=== PATIENT | male | born 1945 | race Caucasian/White ===

== ENCOUNTER 2017-08-09 23:13 | Inpatient (IN) | payer OTHER ==
[~2017-08-09] VITALS: Ht 190.5 cm; Wt 150.6 kg
[~2017-08-09 23:13] MED LIST: ADVAIR INH; ALBUAER2 INH; ALLO300T2 PO; ATOR-24 PO; LEVOTHROXINE PO; LOSARTAN/HCTZ 100-25 PO; NAPR220T40 PO; OLOP0.1S3 OP; SERT1TAB71 PO
[2017-08-09] MEDS ORDERED: ONDANSETRON INJ 2 MG/ML 2 ML VIAL IV STA (23:49)
[2017-08-09] MEDS ORDERED: SODIUM CHLORIDE 0.9% 1000ML 1,000 ML IV STA (23:49)
--- NOTE | 2017-08-09 23:49 | EMERGENCY ROOM VISIT NOTE ---
History Report prepared by Reginald: Lori Coley Under the Supervision of: Dr. Seth Erickson M.D. First contact with patient: 23:25 Chief Complaint: URINARY SYMPTOMS Stated Complaint: POSSIBLE UTI, DEMNTA History of Present Illness The patient is a 72 year old white male with a past medical history of dementia , HTN, HLD who presents to the ED with a cc of urinary symptoms beginning last night. Positive fever of 101.8, abdominal pain. Negative headache, sore throat, cough, vomiting, rashes, or skin changes. He is accompanied by his who states that last night her fell but was able to catch himself on the bed. She also states he has been talking to himself, babbling and is more confused than usual. She also reports that he spent all of today sleeping. She also notes that the patient is currently taking Remeron. Source of History: patient, spouse/significant other () Onset: last night Position: other (upper and lower extremities) Quality: other (urinary symptoms) Associated Symptoms: + abdominal pain, No headache, No sorethroat, No cough , No vomiting, No rash Note: Negative skin changes. Review of Systems See HPI for pertinent positives and negatives. A total of ten systems were reviewed and were otherwise negative. Past Medical & Surgical Medical Problems: (1) Dementia Dementia Social History Smoking Status: Never Smoker Smokeless Tobacco Use: No Housing Status: lives with family Occupation Status: retired Current/Historical Medications Scheduled Albuterol (Ventolin Hfa), 1-2 PUFFS INH PRN Allopurinol (Zyloprim), 300 MG PO QAM Aspirin (Aspirin Ec), 325 MG PO DAILY Atorvastatin (Lipitor), 40 MG PO QPM Azelastine HCl (Azelastine Hydrochloride), 2 SPRAYS CARLOS BID Budesonide/Formoterol Fumarate (Symbicort 160/4.5 Inhaler ), 2 PUFFS INH BID Ergocalciferol (Vitamin D 15686 Unit), 50,000 UNIT PO WK Fluticasone Propionate (Nasal) (Flonase Allergy Relief), 1 SPRAY CARLOS BID Guaifenesin La (Guaifenesin Er), 600 MG PO BID Hctz/Losartan (Hyzaar 25MG/100MG), 1 TAB PO DAILY Levothyroxine Sodium (Levothyroxine Sodium), 100 MCG PO DAILY Montelukast Sodium (Singulair), 10 MG PO HS Tamsulosin Hcl (Flomax), 0.4 MG PO DAILY Venlafaxine Hcl (Effexor Extended Rel), 150 MG PO DAILY Scheduled PRN Ketotifen Fumarate (Ophth) (Alaway), 1 DROPS OPB q8-12hours PRN for itchy eyes Allergies Coded Allergies: Lentils (Verified Allergy, Severe, THROAT SWELLS, 08/10/17) Uncoded Allergies: PEAS (Allergy, Severe, THROAT SWELLS, 06/02/12) NKDA (Allergy, Unknown, NKDA, 02/04/16) Physical Exam Vital Signs Date Time Temp Pulse Resp B/P (MAP) Pulse Ox O2 Delivery O2 Flow Rate FiO2 08/10/17 00:59 95 Room Air 08/10/17 00:58 108 18 132/82 Room Air 08/10/17 00:15 106 08/09/17 23:16 37.4 62 18 116/65 95 Room Air Physical Exam GENERAL: Awake, alert, well-appearing, NAD HENT: Normocephalic, atraumatic. EYES: Normal conjunctiva. Sclera non-icteric. Visual acuity to gross finger counting normal. PERRL. EOMI. No anisocoria. NECK: Supple. No nuchal rigidity. FROM. RESPIRATORY: CTAB, no rhonchi, wheezing, crackles CARDIAC: Tachycardic and irregular, no MRG ABDOMEN: Soft, NTND, BS+ MSK: Right sided chest wall pain, no LE edema NEURO: GCS 14, CN 2-12 intact, moves all 4s on command. A and O x2. Follow commands. SKIN: No rash or jaundice noted. Medical Decision & Procedures ER Provider Diagnostic Interpretation: Radiology results as stated below per my review and radiologist interpretation: CT HEAD: No prior No acute intracranial findings. Radiologist: Osman Joshi MD Phone: [phone] Study ready at 00:50 and intial results transmitted at 01:20 Laboratory Results 08/09/17 00:35 Red Blood Count 4.77, Mean Corpuscular Volume 91.8, Mean Corpuscular Hemoglobin 31.2, Mean Corpuscular Hemoglobin Concent 34.0, Mean Platelet Volume 9.0, Neutrophils (%) (Auto) 70.8, Lymphocytes (%) (Auto) 17.1, Monocytes (%) (Auto) 11.2, Eosinophils (%) (Auto) 0.6, Basophils (%) (Auto) 0.2, Neutrophils # (Auto ) 7.58, Lymphocytes # (Auto) 1.83, Monocytes # (Auto) 1.20, Eosinophils # (Auto ) 0.06, Basophils # (Auto) 0.02 08/09/17 00:35 Test 08/09/17 00:35 White Blood Count 10.70 K/uL (4.8-10.8) Red Blood Count 4.77 M/uL (4.7-6.1) Hemoglobin 14.9 g/dL (14.0-18.0) Hematocrit 43.8 % (42-52) Mean Corpuscular Volume 91.8 fL (80-100) Mean Corpuscular Hemoglobin 31.2 pg (25-34) Mean Corpuscular Hemoglobin Concent 34.0 g/dl (32-36) Platelet Count 216 K/uL (130-400) Mean Platelet Volume 9.0 fL (7.4-10.4) Neutrophils (%) (Auto) 70.8 % Lymphocytes (%) (Auto) 17.1 % Monocytes (%) (Auto) 11.2 % Eosinophils (%) (Auto) 0.6 % Basophils (%) (Auto) 0.2 % Neutrophils # (Auto) 7.58 K/uL (1.4-6.5) Lymphocytes # (Auto) 1.83 K/uL (1.2-3.4) Monocytes # (Auto) 1.20 K/uL (0.11-0.59) Eosinophils # (Auto) 0.06 K/uL (0-0.5) Basophils # (Auto) 0.02 K/uL (0-0.2) RDW Standard Deviation 45.6 fL (36.4-46.3) RDW Coefficient of Variation 13.6 % (11.5-14.5) Immature Granulocyte % (Auto) 0.1 % Immature Granulocyte # (Auto) 0.01 K/uL (0.00-0.02) Prothrombin Time 10.6 SECONDS (9.0-12.0) Prothromb Time International Ratio 1.0 (0.9-1.1) Activated Partial Thromboplast Time 27.3 SECONDS (21.0-31.0) Partial Thromboplastin Ratio 1.1 Anion Gap 8.0 mmol/L (3-11) Est Creatinine Clear Calc Drug Dose 88.9 ml/min Estimated GFR () 69.4 Estimated GFR (Non- 59.9 BUN/Creatinine Ratio 10.6 (10-20) Calcium Level 8.5 mg/dl (8.5-10.1) Magnesium Level 1.8 mg/dl (1.8-2.4) Total Bilirubin 1.8 mg/dl (0.2-1) Direct Bilirubin 0.5 mg/dl (0-0.2) Aspartate Amino Transf (AST/SGOT) 22 U/L (15-37) Alanine Aminotransferase (ALT/SGPT) 19 U/L (12-78) Alkaline Phosphatase 92 U/L (45-117) Troponin I < 0.015 ng/ml (0-0.045) Total Protein 7.4 gm/dl (6.4-8.2) Albumin 3.4 gm/dl (3.4-5.0) Lipase 77 U/L (73-393) Thyroid Stimulating Hormone (TSH) 1.310 uIu/ml (0.300-4.500) Laboratory results reviewed by me Medications Administered Medications (Trade) Dose Ordered Sig/Paul Route Start Time Stop Time Status Last Admin Dose Admin Sodium Chloride 1,000 ml @ 999 mls/hr Q1H1M STAT IV 08/09/17 23:49 08/10/17 00:49 DC 08/10/17 00:51 999 MLS/HR Ceftriaxone Sodium (Rocephin Inj) 1 gm NOW STAT IV 08/10/17 00:30 08/10/17 00:31 DC 08/10/17 00:55 1 GM Azithromycin (Zithromax Tab) 500 mg NOW ONCE PO 08/10/17 00:30 08/10/17 00:31 DC 08/10/17 00:51 500 MG ECG Per My Interpretation Indication: other (altered mental status) Rate (beats per minute): 110 Rhythm: atrial fibrillation Findings: Q waves (Anterior), other (normal QRS, normal axis ) Comparison ECG Date: 06/02/12 Change: Afib is new and the Q waves are new compared to prior ED Course 2338: The patient was evaluated in room B8. A complete history and physical exam was performed. 2349: Ordered Zofran Inj 4 mg IV, Sodium Chloride 1000 ml @ 999 mls/hr IV 0023: Ordered Cardizem Inj 25 mg IV, Diltiazem HCl 120 mg PO 0030: Ordered Zithromax Tab 500 mg PO, Rocephin Inj 1 gm IV 0032: I checked on the patient at this time. Discussed the patient's case with . The patient will be evaluated for further treatment and disposition. Medical Decision The patient is a 72 year old white male with a past medical history of dementia , HTN, HLD who presents to the ED with a cc of urinary symptoms beginning last night. Positive fever of 101.8, abdominal pain. Negative headache, sore throat, cough, vomiting, rashes, or skin changes. Prior records/ancillary studies reviewed and summarized above. Nursing notes reviewed. Additional history obtained from the patient's . The patient's history was concerning for altered mental status. Differential diagnosis: Etiologies such as metabolic, infection, hypoglycemia, electrolyte abnormalities , cardiac sources, intracerebral event, toxicologic, neurologic, as well as others were entertained. Patient was seen and evaluated the bedside. History is primarily obtained from the who is the patient's primary caregiver. She is noted that he has had some increasing weakness decreased alertness, decreased activity, and fever. He said a T-max of 101. He may have some questionable urinary symptoms. She is concerned that maybe he has a UTI. The patient is a and O 2 and can follow commands. GCS of 14. No recent falls or head strikes. Patient did complain of some mild right-sided lower chest versus right upper quadrant discomfort. On exam he complains of both. Patient did have blood work completed along with EKG, troponin, chest x-ray, urinalysis. Patient's EKG did note that the patient was in A. fib. The patient was given IV fluids as well as Cardizem. The patient's chest x-ray showed a questionable infiltrate at the right base. Especially given the patient's fever as well as decreased mental status this may be contributory. Furthermore, he may be at risk of aspiration given his history of dementia. Patient has no prior history of A. fib and is not anticoagulated at this time. The patient's potassium was low which was repleted. Patient was noted to have elevated T bili so right upper quadrant ultrasound was obtained. This was pending. White blood cell count was normal. Patient's LFTs alk phos within normal limits. Patient was treated with Rocephin and Zithromax for possible pneumonia. I did discuss with the case with the on-call hospitalist. Urinalysis is still pending. CT of the brain was negative. Medicine service agreed to further evaluate and treat the patient. Patient was admitted to the medicine service. Medication Reconcilliation Current Medication List: was personally reviewed by me Blood Pressure Screening Patient's blood pressure: Normal blood pressure Blood pressure disposition: Did not require urgent referral Impression Primary Impression: Pneumonia Additional Impressions: Fever A-fib Hypokalemia Dementia Scribe Attestation The scribe's documentation has been prepared under my direction and personally reviewed by me in its entirety. I confirm that the note above accurately reflects all work, treatment, procedures, and medical decision making performed by me. Departure Information Dispostion Being Evaluated By Hospitalist Referrals No Doctor, Assigned (PCP) Patient Instructions My [facility] Problem Qualifiers Primary Impression: Pneumonia Pneumonia type: due to unspecified organism Laterality: right Lung location : lower lobe of lung Qualified Codes: J18.1 - Lobar pneumonia, unspecified organism Additional Impressions: Fever Fever type: unspecified Qualified Codes: R50.9 - Fever, unspecified A-fib Atrial fibrillation type: paroxysmal Qualified Codes: I48.0 - Paroxysmal atrial fibrillation Dementia Dementia type: unspecified type Dementia behavioral disturbance: with behavioral disturbance Qualified Codes: F03.91 - Unspecified dementia with behavioral disturbance
[2017-08-10] VITALS (10 sets, daily range): BP systolic 76–151; BP diastolic 52–85; PULSE 74–120; TEMP 37–37.8; O2SAT 90–95; Ht 190.5 cm; Wt 150.6 kg
[2017-08-10] MEDS ORDERED: DILTIAZEM HCL 5 MG/ML 5 ML VIAL IV STA (00:23)
[2017-08-10] MEDS ORDERED: DILTIAZEM HCL 120 MG ER CAP PO STA (00:23)
[2017-08-10] MEDS ORDERED: MONT1TAB3 PO (00:29)
[2017-08-10] MEDS ORDERED: CEFTRIAXONE SOD INJ 1 GM ADDVIAL IV STA (00:30)
[2017-08-10] MEDS ORDERED: AZITHROMYCIN 250 MG TAB PO ONE (00:30)
[2017-08-10] MEDS ORDERED: AZEL0.1S2 NAE (00:31)
[2017-08-10] MEDS ORDERED: HYZ/10015 PO (00:32)
[2017-08-10] MEDS ORDERED: FLUT0.15 NAE (00:34)
[2017-08-10] MEDS ORDERED: SYMIN160 INH (00:35)
[2017-08-10] MEDS ORDERED: ERGO500037 PO (00:36)
[2017-08-10] MEDS ORDERED: LEVO100T7 PO (00:38)
[2017-08-10] MEDS ORDERED: KETO0.024 OPB (00:40)
[2017-08-10] MEDS ORDERED: ASPI325T39 PO (00:41)
[2017-08-10] MEDS ORDERED: GUAI1TAB75 PO (00:42)
[2017-08-10] MEDS ORDERED: TAMS0.4C38 PO (00:43)
[2017-08-10] MEDS ORDERED: VENL150C56 PO (00:44)
[2017-08-10 00:50] LABS: BASO % 0.2 %; BASO ABS # 0.02 K/uL (0-0.2); EOS % 0.6 %; EOS ABS # 0.06 K/uL (0-0.5); HEMATOCRIT 43.8 % (42-52); HEMOGLOBIN 14.9 g/dL (14.0-18.0); IG# 0.01 K/uL (0.00-0.02); LYMPH % 17.1 %; LYMPH ABS # 1.83 K/uL (1.2-3.4); MEAN CELL VOLUME 91.8 fL (80-100); MEAN CORPUSCULAR HEMOGLOBIN 31.2 pg (25-34); MONO % 11.2 %; NEUT % 70.8 %; NEUT ABS # 7.58 K/uL (1.4-6.5); PLATELET COUNT 216 K/uL (130-400); RED CELL DISTRIBUTION WIDTH CV 13.6 % (11.5-14.5); RED CELL DISTRIBUTION WIDTH SD 45.6 fL (36.4-46.3)
[2017-08-10 01:02] LABS: PTT PATIENT 27.3 SECONDS (21.0-31.0)
[2017-08-10 01:12] LABS: ALBUMIN 3.4 gm/dl (3.4-5.0); ALT/SGPT 19 U/L (12-78); AST/SGOT 22 U/L (15-37); BLOOD UREA NITROGEN 13 mg/dl (7-18); CALCIUM 8.5 mg/dl (8.5-10.1); CARBON DIOXIDE 30 mmol/L (21-32); CREATININE 1.21 mg/dl (0.60-1.40); GLUCOSE 111 mg/dl (70-99); LIPASE 77 U/L (73-393); POTASSIUM 3.1 mmol/L (3.5-5.1); SODIUM 139 mmol/L (136-145)
[2017-08-10] MEDS ORDERED: POTASSIUM CHLORIDE 20 MEQ TABCR PO STA ×2 (01:20→08:01)
[2017-08-10 01:23] LABS: ALKALINE PHOSPHATASE 92 U/L (45-117); TOTAL PROTEIN 7.4 gm/dl (6.4-8.2)
[2017-08-10] MEDS ORDERED: FINA5TAB4 PO (02:46)
[2017-08-10] MEDS ORDERED: POTASSIUM CHLORIDE 10 MEQ TABCR ONE (02:51)
[2017-08-10] MEDS ORDERED: METOPROLOL TARTRATE 1 MG/ML VIAL IV STA (03:10)
[2017-08-10] MEDS ORDERED: HEPARIN SOD (PORCINE) 1000 UNIT/ML 10 ML VIAL ONE (03:23)
[2017-08-10] MEDS ORDERED: HEPARIN 25000 UNIT/500 ML D5W ONE (03:23)
--- NOTE | 2017-08-10 03:49 | History and Physical ---
History & Physical Date & Time of Service: August 10, 2017 at 03:09 Chief Complaint: Possible Uti, Demnta Primary Care Physician: Brijesh Darnell M.D. History of Present Illness Source: patient, spouse, clinic records, hospital records 72 years old male with past medical history of hypertension, hypothyroidism, obesity, advanced dementia, vitamin D deficiency, venous insufficiency present to the ER with urinary incontinence and fever. History obtained from the due to advanced dementia. As per for the past 3 nights, patient has been found in his bed soaked in his urine which is unusual for him. said his mental status as been deteriorated in the past few days and patient has been feeling more sleepy and tired. He has been moving very slowly and his gait his unsteady. Yesterday afternoon he spiked a fever with temp 101.8. said last night patient fell, but he was able to catch himself on the bed. He has been more confused than usual. Also he has been coughing with productive yellowish sputum. He was recently started on Remeron about a week ago. While in the ER his heart rate increased above 100 from 60. EKG done in the ER showed Afib. As per patient has no history of A. fib. Also complaint of RUQ tenderness that resolved. Denies any chest pain, palpitation, dizziness, shortness of breath, diarrhea, nausea and vomiting. Past Medical/Surgical History Medical Problems: (1) Afib (2) Dementia (3) Fever Social History Smoking Status: Never Smoker Smokeless Tobacco Use: No Occupational Status: retired Allergies Coded Allergies: Lentils (Verified Allergy, Severe, THROAT SWELLS, 08/10/17) Pea (Verified Allergy, Severe, throat swells, 08/10/17) NO KNOWN DRUG ALLERGIES (Verified Allergy, Unknown, ., 08/10/17) Home Medications Scheduled Albuterol (Ventolin Hfa), 1-2 PUFFS INH PRN Allopurinol (Zyloprim), 300 MG PO HS Aspirin (Aspirin Ec), 325 MG PO DAILY Atorvastatin (Lipitor), 40 MG PO QPM Azelastine HCl (Azelastine Hydrochloride), 2 SPRAYS CARLOS BID Budesonide/Formoterol Fumarate (Symbicort 160/4.5 Inhaler ), 2 PUFFS INH BID Ergocalciferol (Vitamin D 07191 Unit), 50,000 UNIT PO WK Finasteride (Proscar), 1 TAB PO DAILY Hctz/Losartan (Hyzaar 25MG/100MG), 1 TAB PO DAILY Levothyroxine Sodium (Levothyroxine Sodium), 100 MCG PO DAILY Montelukast Sodium (Singulair), 10 MG PO HS Venlafaxine Hcl (Effexor Extended Rel), 150 MG PO DAILY Scheduled PRN Ketotifen Fumarate (Ophth) (Alaway), 1 DROPS OPB q8-12hours PRN for itchy eyes Review of Systems Constitutional: + fever, + weakness Eyes: + worsening of vision, No discharge ENT: No sore throat, No trouble swallowing Respiratory: + cough, + sputum, No shortness of breath Cardiovascular: + edema, No chest pain, No claudication Abdomen: No pain, No nausea, No vomiting Musculoskeletal: + swelling, No calf pain Genitourinary - Male: + urinary incontinence Neurologic: + memory loss, + weakness, + balance problems Psychiatric: No substance abuse Endocrine: + fatigue Hematologic / Lymphatic: No night sweats Integumentary: No rash, No itch Physical Exam Vital Signs Date Time Temp Pulse Resp B/P (MAP) Pulse Ox O2 Delivery O2 Flow Rate FiO2 08/10/17 00:59 95 Room Air 08/10/17 00:58 108 18 132/82 Room Air 08/10/17 00:15 106 08/09/17 23:16 37.4 62 18 116/65 95 Room Air General Appearance: no apparent distress, + obese Head: normocephalic, atraumatic Eyes: PERRL, EOMI ENT: hearing grossly normal Neck: no JVD, trachea midline Respiratory/Chest: chest non-tender, no respiratory distress, no accessory muscle use Cardiovascular: no JVD, no murmur, + irregularly irregular Abdomen/GI: normal bowel sounds, non tender Back: no CVA tenderness Extremities/Musculoskelatal: no calf tenderness, + swelling Neurologic/Psych: alert, normal mood/affect Skin: warm/dry, no rash Diagnostics Laboratory Results Microbiology Results 08/10/17 Blood Culture, Ordered Pending 08/10/17 Blood Culture, Ordered Pending Diagnostic Radiology CHEST ONE VIEW PORTABLE CLINICAL HISTORY: EVALUATE WEAKNESS COMPARISON STUDY: Chest radiograph June 02, 2012. FINDINGS: There is no pneumothorax or pleural effusion. There is no evidence for pulmonary edema. Lung volumes are diminished. Right infrahilar opacity is noted. There is mild left basilar opacity. Mild cardiomegaly is noted. IMPRESSION: Bibasilar opacities, right greater than left. The findings may reflect pneumonia or atelectasis on this hypoventilatory study. Radiographic follow-up to ensure resolution is recommended. Electronically signed by: Yariel Doll M.D. 08/10/2017 6:42 AM Dictated Date/Time: 08/10/2017 6:[address] HEAD WITHOUT CONTRAST (CT) CLINICAL HISTORY: Change in mental status. Weakness. COMPARISON STUDY: No previous studies for comparison. TECHNIQUE: Axial CT of the brain is performed from the vertex to the skull base. IV contrast was not administered for this examination. A dose lowering technique was utilized adhering to the principles of ALARA. CT DOSE: 614.27 mGy.cm FINDINGS: No intra or extra-axial mass lesions are visualized. There is no CT evidence of acute cortical infarction. There is no evidence of midline shift. There is no acute hemorrhage. No calvarial fractures are visualized. There are patchy white matter hypodensities likely on a small vessel basis. There is no evidence of pathologic ventricular dilatation. There is no evidence of acute sinusitis IMPRESSION: No acute intracranial findings Electronically signed by: Jorge Luis Rubalcava M.D. 08/10/2017 6:30 AM Dictated Date/Time: 08/10/2017 6:29 AM [~ rep ct add3]] GALLBLADDER-ABD LIMITED HISTORY: 72 years-old Male RUQ pain, elevated bilis acute right upper quadrant abdominal pain COMPARISON: None available TECHNIQUE: Multiple real-time sonographic images of the abdominal right upper quadrant were obtained assessing grayscale appearance and color flow FINDINGS: Study is limited secondary to patient confusion, body habitus and inability to follow instructions from the press tool maker. The visualized portions of the pancreas appear unremarkable. Cluster of cysts and/or septated cyst in the left hepatic lobe measure up to 5.4 x 5.0 x 4.7 cm. No internal vascularity. No intrahepatic biliary ductal dilation identified. Gallbladder is within normal limits without wall thickening, shadowing cholelithiasis or pericholecystic fluid. Sonographic Diehl sign reported as negative. Common bile duct is normal, 3.5 mm. The imaged right kidney is unremarkable without hydronephrosis. IMPRESSION: 1. Limited study as above. 2. No sonographic evidence of cholelithiasis or acute cholecystitis. 3. No biliary ductal dilation. 4. Liver cyst with septation versus two adjacent hepatic cysts. The above report was generated using voice recognition software. It may contain grammatical, syntax or spelling errors. Electronically signed by: Jaxson Ngo M.D. 08/10/2017 6:39 AM Dictated Date/Time: 08/10/2017 6:36 AM Impression Assessment and Plan Fever Confusion Possible related to UTI versus pneumonia No leukocytosis Chest x-ray showed bibasilar opacities, right greater than left. Antibiotic was given before collected blood and urine sample Received Rocephin and Zithromax in the ER We will continue Zithromax and Rocephin for now Follow-up culture New-onset of A. fib Heart rate between the high 90s-100s Mostly related to infection [id number] Vasc 2 Not a good candidate for long-term anticoagulant due to advanced dementia and unsteady gait with recent fall We will start on heparin drip while in the hospital Lopressor 5 mg IV given We will get an echo in the morning Continue aspirin Cardiology consult Monitor in telemetry Hypokalemia K replaced Monitor BMP Hypertension BP stable Continue BP med Dementia Seems to be worsening Depression Anxiety On Effexor Stable Hypothyroidism TSH within normal limits Continue levothyroxine 100 mcg Ambulatory dysfunction Fall precaution PT/OT Asthma Patient stopped taking the Symbicort Denies any shortness of breath Continue Symbicort DuoNeb treatment Dementia Altered mental status CT head showed no acute intracranial abnormality Mostly due to acute illness Dyslipidemia Continue statin DVT prophylaxis on heparin drip CODE STATUS DNR Anabaptist no blood transfusion Resuscitation Status VTE Prophylaxis Will order VTE Prophylaxis: Yes
[2017-08-10] MEDS ORDERED: ALBUT/IPRATROP 3MG/0.5MG NEB 3 ML VIAL INH PRN (04:15)
[2017-08-10] MEDS: ACETAMINOPHEN 325 MG TAB PO PRN ×2 (05:04→21:23)
[2017-08-10] MEDS: LEVOTHYROXINE 100 MCG TAB PO SCH (06:22)
--- NOTE | 2017-08-10 06:31 | DIAGNOSTIC IMAGING REPORT ---
CT HEAD WITHOUT CONTRAST (CT) CLINICAL HISTORY: Change in mental status. Weakness. COMPARISON STUDY: No previous studies for comparison. TECHNIQUE: Axial CT of the brain is performed from the vertex to the skull base. IV contrast was not administered for this examination. A dose lowering technique was utilized adhering to the principles of ALARA. CT DOSE: 614.27 mGy.cm FINDINGS: No intra or extra-axial mass lesions are visualized. There is no CT evidence of acute cortical infarction. There is no evidence of midline shift. There is no acute hemorrhage. No calvarial fractures are visualized. There are patchy white matter hypodensities likely on a small vessel basis. There is no evidence of pathologic ventricular dilatation. There is no evidence of acute sinusitis IMPRESSION: No acute intracranial findings Electronically signed by: Jorge Luis Rubalcava M.D. 08/10/2017 6:30 AM Dictated Date/Time: 08/10/2017 6:29 AM
--- NOTE | 2017-08-10 06:41 | DIAGNOSTIC IMAGING REPORT ---
GALLBLADDER-ABD LIMITED HISTORY: 72 years-old Male RUQ pain, elevated bilis acute right upper quadrant abdominal pain COMPARISON: None available TECHNIQUE: Multiple real-time sonographic images of the abdominal right upper quadrant were obtained assessing grayscale appearance and color flow FINDINGS: Study is limited secondary to patient confusion, body habitus and inability to follow instructions from the chocolate finisher. The visualized portions of the pancreas appear unremarkable. Cluster of cysts and/or septated cyst in the left hepatic lobe measure up to 5.4 x 5.0 x 4.7 cm. No internal vascularity. No intrahepatic biliary ductal dilation identified. Gallbladder is within normal limits without wall thickening, shadowing cholelithiasis or pericholecystic fluid. Sonographic Diehl sign reported as negative. Common bile duct is normal, 3.5 mm. The imaged right kidney is unremarkable without hydronephrosis. IMPRESSION: 1. Limited study as above. 2. No sonographic evidence of cholelithiasis or acute cholecystitis. 3. No biliary ductal dilation. 4. Liver cyst with septation versus two adjacent hepatic cysts. The above report was generated using voice recognition software. It may contain grammatical, syntax or spelling errors. Electronically signed by: Jaxson Ngo M.D. 08/10/2017 6:39 AM Dictated Date/Time: 08/10/2017 6:36 AM
--- NOTE | 2017-08-10 06:43 | DIAGNOSTIC IMAGING REPORT ---
CHEST ONE VIEW PORTABLE CLINICAL HISTORY: EVALUATE WEAKNESS COMPARISON STUDY: Chest radiograph June 02, 2012. FINDINGS: There is no pneumothorax or pleural effusion. There is no evidence for pulmonary edema. Lung volumes are diminished. Right infrahilar opacity is noted. There is mild left basilar opacity. Mild cardiomegaly is noted. IMPRESSION: Bibasilar opacities, right greater than left. The findings may reflect pneumonia or atelectasis on this hypoventilatory study. Radiographic follow-up to ensure resolution is recommended. Electronically signed by: Yariel Doll M.D. 08/10/2017 6:42 AM Dictated Date/Time: 08/10/2017 6:40 AM
[2017-08-10] MEDS ORDERED: PERFLUTREN LIPID MICROSPHERE (DEFINITY) IV ONE (07:23)
[2017-08-10] MEDS: LOSARTAN/HCTZ 50-12.5 EA TAB PO SCH (07:48)
[2017-08-10] MEDS: VENLAFAXINE HCL XR 150 MG CAPXR PO SCH (07:48)
[2017-08-10] MEDS: FINASTERIDE 5 MG TAB PO SCH (07:48)
[2017-08-10] MEDS: ASPIRIN 325 MG ECTAB PO SCH (07:48)
[2017-08-10] MEDS: HEPARIN 25,000 UNIT/500ML D5W 500 ML IV SCH ×2 (07:50→18:35)
[2017-08-10] MEDS ORDERED: MAGNESIUM SULFATE 1GM / D5W 100 ML IV ONE (08:15)
[2017-08-10] MEDS ORDERED: MIRT15TA3 PO (09:14)
[2017-08-10] MEDS ORDERED: FEXO1TAB49 PO (09:17)
[2017-08-10] MEDS ORDERED: ATV/1 PO (09:17)
[2017-08-10] MEDS ORDERED: MIRT15TA PO (09:17)
--- NOTE | 2017-08-10 09:19 | Progress Note ---
Subjective Date of Service: August 10, 2017. Subjective Pt evaluation today including: conversation w/ patient, conversation w/ family , physical exam, chart review, lab review, review of studies, review of inpatient medication list Saw/examined the patient in room 108 He is resting comfortably; having good conversations and daughter are in the room with him Review of Systems Constitutional: + weakness Respiratory: + cough, No sputum Cardiac: No chest pain underlying dementia - difficult to get a complete ROS Medications Current Inpatient Medications Medications (Trade) Dose Ordered Sig/Paul Route Start Time Stop Time Status Last Admin Dose Admin Acetaminophen (Tylenol Tab) 650 mg Q4H PRN PO 08/10/17 02:45 09/09/17 02:44 08/10/17 05:04 650 MG Allopurinol (Zyloprim Tab) 300 mg HS PO 08/10/17 21:00 09/09/17 20:59 Aspirin (Ecotrin Tab) 325 mg DAILY PO 08/10/17 09:00 09/09/17 08:59 08/10/17 07:48 325 MG Atorvastatin Calcium (Lipitor Tab) 40 mg QPM PO 08/10/17 21:00 09/09/17 20:59 Finasteride (Proscar Tab) 5 mg DAILY PO 08/10/17 09:00 09/09/17 08:59 08/10/17 07:48 5 MG HCTZ/Losartan Potassium (Hyzaar 50-12.5 Tab) 1 tab DAILY PO 08/10/17 09:00 09/09/17 08:59 08/10/17 07:48 1 TAB Levothyroxine Sodium (Synthroid Tab) 100 mcg DAILYBB PO 08/10/17 06:00 09/09/17 06:59 08/10/17 06:22 100 MCG Montelukast Sodium (Singulair Tab) 10 mg HS PO 08/10/17 21:00 09/09/17 20:59 Venlafaxine HCl (effeXOR EXTENDED REL CAP) 150 mg DAILY PO 08/10/17 09:00 09/09/17 08:59 08/10/17 07:48 150 MG Ceftriaxone Sodium 1 gm/ Dextrose 50 ml @ 100 mls/hr Q24H IV 08/10/17 22:00 08/12/17 21:59 Albuterol/ Ipratropium (Duoneb) 3 ml Q4R PRN INH 08/10/17 04:15 09/09/17 04:14 Heparin Sodium/ Dextrose 500 ml @ 40 mls/hr [id number] IV 08/10/17 07:15 09/09/17 07:14 08/10/17 07:50 40 MLS/HR Potassium Chloride 100 ml @ 100 mls/hr Q1H IV 08/10/17 08:15 08/10/17 10:14 Magnesium Sulfate 100 ml @ 100 mls/hr TODAY@0815 ONCE IV 08/10/17 08:15 08/10/17 09:14 Azithromycin (Zithromax Tab) 500 mg QAM PO 08/11/17 09:00 08/17/17 08:59 Objective Vital Signs Date Time Temp Pulse Resp B/P (MAP) Pulse Ox O2 Delivery O2 Flow Rate FiO2 08/10/17 08:00 93 Room Air 08/10/17 08:00 37.0 87 18 113/77 (89) 93 Room Air 08/10/17 04:55 37.8 92 22 114/84 92 Room Air 08/10/17 04:01 89 20 130/92 96 08/10/17 03:45 111 130/92 08/10/17 03:44 100 20 130/92 96 Room Air 08/10/17 00:59 95 Room Air 08/10/17 00:58 108 18 132/82 Room Air 08/10/17 00:15 106 08/09/17 23:16 37.4 62 18 116/65 95 Room Air Physical Exam General Appearance: + obese, + pertinent finding (underlying dementia, conversing well) Respiratory/Chest: lungs clear, normal breath sounds, no respiratory distress, no accessory muscle use Cardiovascular: regular rate, rhythm, no edema, no murmur Extremities: normal range of motion, non-tender, normal inspection, no pedal edema, no calf tenderness Neurologic/Psychiatric: no motor/sensory deficits, alert, normal mood/affect, + disoriented Skin: normal color Laboratory Results Last 24 Hours Test 08/10/17 03:50 08/10/17 07:34 Urine Color YELLOW Urine Appearance ERROR Urine pH 6.5 Urine Specific [place] 1.013 Urine Protein NEG Urine Glucose (UA) NEG Urine Ketones NEG Urine Occult Blood NEG Urine Nitrite NEG Urine Bilirubin NEG Urine Urobilinogen NEG Urine Leukocyte Esterase NEG Potassium Level 3.0 mmol/L Magnesium Level 1.7 mg/dl Troponin I < 0.015 ng/ml Procalcitonin < 0.05 ng/ml Assessment and Plan This is a 72 year old male with a past medical history of mixed vascular/fronto- temporal dementia, depression/anxiety, asthma, HTN, hypothyroidism, obesity - presents with worsening confusion, ambulatory dysfunction, productive cough Community Acquired Pneumonia - CXR - Bibasilar opacities, right greater than left - will give Rocephin + Azithro for pneumonia - no white count, afebrile - will need PT/OT due to progressive weakness New Onset Atrial Fibrillation - had an episode of A. Fib - now converting to sinus tachycardia - either way, started on IV heparin for now - may not be a good long-term candidate for anticoagulation; pending PT/OT evaluations - will replace potassium and magnesium and treat the infection which will likely improve the A. fib - check an echo - cardiology consulted Mixed vascular/fronto-temporal dementia Depression/Anxiety - follows with geriatric psych - was recently started on Remeron, which we can hold for now - continue Effexor Hypothyroidism - TSH within normal limits - continue Synthroid Asthma/Allergies - continue Singulair DVT ppx - IV heparin DNR
[2017-08-10] MEDS: POTASSIUM CHLR 10 MEQ / WTR 100 ML IV SCH ×2 (09:27→10:28)
--- NOTE | 2017-08-10 10:01 | Cardiology Consultation ---
Cardiology Consultation Date of Service August 10, 2017. Cardiology Consultation Indication: Consultation for atrial fibrillation History: This is a 72-year-old male patient with advanced dementia who was admitted with a urinary tract infection and noted after admission on telemetry with rate controlled atrial fibrillation. Reviewing our records, the patient has no significant cardiac history. I actually saw him in 2011 to clear him for minor knee surgery due to an abnormal EKG. That was our first and last interaction with him. He has no prior history of cardiac arrhythmias. No previous history of myocardial infarction, congestive heart failure or valvular heart disease. Allergies: Patient has some food allergies Current Inpatient Medications Medications (Trade) Dose Ordered Sig/Paul Route Start Time Stop Time Status Last Admin Dose Admin Acetaminophen (Tylenol Tab) 650 mg Q4H PRN PO 08/10/17 02:45 09/09/17 02:44 08/10/17 05:04 650 MG Allopurinol (Zyloprim Tab) 300 mg HS PO 08/10/17 21:00 09/09/17 20:59 Aspirin (Ecotrin Tab) 325 mg DAILY PO 08/10/17 09:00 09/09/17 08:59 08/10/17 07:48 325 MG Atorvastatin Calcium (Lipitor Tab) 40 mg QPM PO 08/10/17 21:00 09/09/17 20:59 Finasteride (Proscar Tab) 5 mg DAILY PO 08/10/17 09:00 09/09/17 08:59 08/10/17 07:48 5 MG HCTZ/Losartan Potassium (Hyzaar 50-12.5 Tab) 1 tab DAILY PO 08/10/17 09:00 09/09/17 08:59 08/10/17 07:48 1 TAB Levothyroxine Sodium (Synthroid Tab) 100 mcg DAILYBB PO 08/10/17 06:00 09/09/17 06:59 08/10/17 06:22 100 MCG Montelukast Sodium (Singulair Tab) 10 mg HS PO 08/10/17 21:00 09/09/17 20:59 Venlafaxine HCl (effeXOR EXTENDED REL CAP) 150 mg DAILY PO 08/10/17 09:00 09/09/17 08:59 08/10/17 07:48 150 MG Ceftriaxone Sodium 1 gm/ Dextrose 50 ml @ 100 mls/hr Q24H IV 08/10/17 22:00 08/12/17 21:59 Albuterol/ Ipratropium (Duoneb) 3 ml Q4R PRN INH 08/10/17 04:15 09/09/17 04:14 Heparin Sodium/ Dextrose 500 ml @ 40 mls/hr [id number] IV 08/10/17 07:15 09/09/17 07:14 08/10/17 07:50 40 MLS/HR Potassium Chloride 100 ml @ 100 mls/hr Q1H IV 08/10/17 08:15 08/10/17 10:14 08/10/17 09:27 100 MLS/HR Azithromycin (Zithromax Tab) 500 mg QAM PO 08/11/17 09:00 08/17/17 08:59 Past medical history: The patient has a history of early advanced dementia. He is treated for mild essential hypertension and hypothyroidism. No prior history of diabetes, hypercholesterolemia, kidney disease or strokes. Social history: He lives at home with his . He is a non-smoker. Family medical history: Noncontributory Review of systems: General: The patient denies weight change, night sweats, fever, chills. Head: The patient denies headache and prior head trauma. Cardiovascular: The patient denies chest pain or chest discomfort, dyspnea on exertion, palpitations, PND, orthopnea, edema, spontaneous shortness of breath, syncope and near syncope. Pulmonary: The patient denies cough, wheeze, pleurisy, hemoptysis, sputum, and excessive snoring. Gastrointestinal: The patient denies nausea, vomiting, diarrhea, constipation, bloating, hematemesis, hematochezia, and abdominal pain. Skin: The patient denies diaphoresis and rash. Musculoskeletal: The patient denies joint pain, joint swelling, myalgia, back pain, neck pain and prior injuries. Neurological: The patient denies prior stroke and seizures Vital Signs Past 12 Hours Date Time Temp Pulse Resp B/P (MAP) Pulse Ox O2 Delivery O2 Flow Rate FiO2 08/10/17 08:00 93 Room Air 08/10/17 08:00 37.0 87 18 113/77 (89) 93 Room Air 08/10/17 04:55 37.8 92 22 114/84 92 Room Air 08/10/17 04:01 89 20 130/92 96 08/10/17 03:45 111 130/92 08/10/17 03:44 100 20 130/92 96 Room Air 08/10/17 00:59 95 Room Air 08/10/17 00:58 108 18 132/82 Room Air 08/10/17 00:15 106 08/09/17 23:16 37.4 62 18 116/65 95 Room Air General Appearance: Alert and Oriented x3. NAD. Head: Normocephalic Atraumatic. Eyes: PERRLA, EOMI, conjunctiva and sclera clear Neck: Supple. No carotid bruits noted. No JVD. No HJD. Respiratory: Breath sounds clear to auscultation bilaterally. No w/r/r. Cardiovascular: Irregular rate and rhythm. S1 and S2 noted. No murmurs, rubs, gallops. PMI non displace. Abdomen: Normal bowel sounds, soft nontender. no abdominal bruits. Extremities: No edema, no clubbing or cyanosis. distal pulses 2/4 bilaterally. Neuro: No focal deficits. Psychiatric: Normal affect. Last 24 Hours Test 08/10/17 03:50 08/10/17 07:34 08/10/17 09:51 Urine Color YELLOW Urine Appearance ERROR Urine pH 6.5 Urine Specific [place] 1.013 Urine Protein NEG Urine Glucose (UA) NEG Urine Ketones NEG Urine Occult Blood NEG Urine Nitrite NEG Urine Bilirubin NEG Urine Urobilinogen NEG Urine Leukocyte Esterase NEG Potassium Level 3.0 mmol/L Magnesium Level 1.7 mg/dl Troponin I < 0.015 ng/ml Procalcitonin < 0.05 ng/ml Impression: 1. Rate controlled atrial fibrillation 2. Urinary tract infection 3. Advanced dementia 4. History of mild essential hypertension and treated hypothyroidism Recommendations: The patient is completely unaware correlation. He is not a candidate for long- term coagulation. I would continue to treat him with heparin while he is in the hospital. It appears that he does not need any additional medications for heart rate control at this time. No additional cardiac workup is indicated.
[2017-08-10 10:15] LABS: PTT PATIENT 55.1 SECONDS (21.0-31.0)
[2017-08-10] MEDS ORDERED: LORAZEPAM 0.5 MG TAB PO PRN (10:15)
--- NOTE | 2017-08-10 11:49 | DIAGNOSTIC IMAGING REPORT ---
HEAD WITHOUT CONTRAST (CT) CLINICAL HISTORY: 72 years-old Male with r/o cva/bleed. Acute strokelike symptoms TECHNIQUE: Multiple axial CT images of the head were obtained without contrast. A dose lowering technique was utilized adhering to the principles of ALARA. CT DOSE: 1124.11 mGy.cm COMPARISON: CT head 08/10/2017 at 12:46 AM. FINDINGS: No acute intracranial hemorrhage, midline shift, intracranial mass, hydrocephalus, territorial ischemia or abnormal extra-axial collection. Mild to moderate atrophy with ex vacuo ventriculomegaly and mild chronic microvascular ischemic changes. Exam is mildly motion generated. The calvarium is intact. The paranasal sinuses, mastoid air cells, and middle ear cavities are clear. Prior bilateral cataract repair. IMPRESSION: No acute intracranial abnormality. The above report was generated using voice recognition software. It may contain grammatical, syntax or spelling errors. Electronically signed by: Jaxson Ngo M.D. 08/10/2017 11:48 AM Dictated Date/Time: 08/10/2017 11:45 AM
--- NOTE | 2017-08-10 12:32 | ECHOCARDIOGRAM REPORT ---
*NOTICE TO RECEIVING [employer] This information is strictly Confidential and protected under [place] law. [place] law prohibits you from making any further disclosure of this information unless further disclosure is expressly permitted by the written consent of the person to whom it pertains or is authorized by law. A general authorization for the release of medical or other information is not sufficient for this purpose. Hospital accepts no responsibility if the information is made available to any other person, INCLUDING THE PATIENT. Interpretation Summary * Name: RAKESH MOURA Study Date: 08/10/2017 06:42 AM BP: 114/84 mmHg * Patient Location: .[facility]ICU\S\E108\S\1 HR: 92 * : 1945 (M/d/yyy) Gender: Male Height: 75 in * Age: 72 yrs Ethnicity: [place] Weight: 339 lb * Ordering Physician: Bhanu Jean * Referring Physician: Self, Referred * Performed By: Anne Champagne RCS * * Reason For Study: A-FIB * BSA: 2.7 m2 * -- Conclusions -- * The left ventricle is normal in size. * Left ventricular systolic function is normal. * Ejection Fraction = 60-65%. * The right ventricular systolic function is normal. * The left atrium is mildly dilated. * The right atrium is borderline dilated. * No significant valvular pathology * Pt. is in atrial fibrillation during study. Procedure Details * A complete two-dimensional transthoracic echocardiogram was performed (2D, M-mode, Doppler and color flow Doppler). * A contrast injection of Definity was performed to improve assessment of LV function. * A contrast injection of Definity was performed to improve assessment for apical thrombus. * Contrast was injected into an intravenous site in the left arm. * One vial of Definity ultrasound contrast was diluted in normal saline to a total volume of 10 ml. A total of '1' ml of solution was administered during imaging. * Lot # [id number] of Definity utilized for procedure. * Expiration date . * The attending nurse who injected the contrast agent was Lindy Morley RN. Left Ventricle * The left ventricle is normal in size. * There is normal left ventricular wall thickness. * Ejection Fraction = 60-65%. * Left ventricular systolic function is normal. Right Ventricle * The right ventricle is normal size. * The right ventricular systolic function is normal. Atria * The left atrium is mildly dilated. * The right atrium is borderline dilated. * No ASD detected; PFO is not assessed. Mitral Valve * The mitral valve anatomy is normal. * Significant mitral regurgitation is absent. Tricuspid Valve * The tricuspid valve is not well visualized, but is grossly normal. * There is trace tricuspid regurgitation. Aortic Valve * The aortic valve is normal in structure and function. Pulmonic Valve * The pulmonic valve is not well visualized. Great Vessels * The aortic root and proximal ascending aorta are normal sized. Pericardium/Pleural * There is no pericardial effusion. MMode 2D Measurements and Calculations IVSd 1.1 cm IVSs 1.6 cm LVIDd 5.0 cm LVIDs 3.1 cm LVPWd 1.1 cm LVPWs 1.6 cm IVS/LVPW 1.1 FS 38.6 % EDV(Teich) 118.8 ml ESV(Teich) 37.2 ml EF(Teich) 68.7 % EDV(cubed) 125.8 ml ESV(cubed) 29.1 ml EF(cubed) 76.8 % % IVS thick 40.8 % % LVPW thick 53.4 % LV mass(C)d 204.0 grams LV mass(C)dI 74.3 grams/m\S\2 LV mass(C)s 180.9 grams LV mass(C)sI 65.9 grams/m\S\2 SV(Teich) 81.6 ml SI(Teich) 29.7 ml/m\S\2 SV(cubed) 96.6 ml SI(cubed) 35.2 ml/m\S\2 Ao root diam 3.7 cm Ao root area 10.6 cm\S\2 ACS 2.5 cm LA dimension 4.4 cm asc Aorta Diam 3.3 cm LA/Ao 1.2 EDV(MOD-sp4) 167.0 ml ESV(MOD-sp4) 56.7 ml EF(MOD-sp4) 66.0 % EDV(MOD-sp2) 152.6 ml ESV(MOD-sp2) 63.6 ml EF(MOD-sp2) 58.3 % SV(MOD-sp4) 110.3 ml SI(MOD-sp4) 40.2 ml/m\S\2 SV(MOD-sp2) 88.9 ml SI(MOD-sp2) 32.4 ml/m\S\2 Doppler Measurements and Calculations Ao V2 max 103.7 cm/sec Ao max PG 4.3 mmHg Ao max PG (full) 2.0 mmHg LV V1 max PG 2.3 mmHg LV V1 max 76.1 cm/sec PA V2 max 73.2 cm/sec PA max PG 2.1 mmHg TR max pawan 236.2 cm/sec
[2017-08-10] MEDS: ATORVASTATIN 40 MG TAB PO SCH (19:23)
[2017-08-10] MEDS: MONTELUKAST SOD 10 MG TAB PO SCH (19:23)
[2017-08-10] MEDS: BUDESONIDE/FORMOTEROL FUMARATE 160/4.5 60 PUFFS/INHALER INH SCH (19:23)
[2017-08-10] MEDS: ALLOPURINOL 300 MG TAB PO SCH (19:23)
[2017-08-10] MEDS: CEFTRIAXONE SOD INJ 1 GM in DEXTROSE 5% ADD-VANTAGE 50ML 50 ML IV SCH (21:27)
[2017-08-10] MEDS ORDERED: METOPROLOL TARTRATE 1 MG/ML VIAL IV PRN (22:30)
[2017-08-11] VITALS (7 sets, daily range): BP systolic 101–132; BP diastolic 51–77; PULSE 97–121; TEMP 36.6–38; O2SAT 92–95
[2017-08-11 05:52] LABS: HEMATOCRIT 41.7 % (42-52); HEMOGLOBIN 14.4 g/dL (14.0-18.0); MEAN CELL VOLUME 90.3 fL (80-100); MEAN CORPUSCULAR HEMOGLOBIN 31.2 pg (25-34); MEAN CORPUSCULAR HGB CONC 34.5 g/dl (32-36); MEAN PLATELET VOLUME 9.6 fL (7.4-10.4); PLATELET COUNT 210 K/uL (130-400); RED CELL DISTRIBUTION WIDTH CV 13.5 % (11.5-14.5); RED CELL DISTRIBUTION WIDTH SD 44.6 fL (36.4-46.3); WHITE BLOOD COUNT 14.94 K/uL (4.8-10.8)
[2017-08-11 06:10] LABS: CALCIUM 8.4 mg/dl (8.5-10.1); CREATININE 0.94 mg/dl (0.60-1.40); POTASSIUM 3.2 mmol/L (3.5-5.1)
[2017-08-11 06:11] LABS: PTT PATIENT 50.9 SECONDS (21.0-31.0)
[2017-08-11] MEDS: LEVOTHYROXINE 100 MCG TAB PO SCH (06:17)
[2017-08-11] MEDS ORDERED: POTASSIUM CHLORIDE 20 MEQ TABCR PO STA (07:42)
[2017-08-11] MEDS: HEPARIN 25,000 UNIT/500ML D5W 500 ML IV SCH ×2 (07:50→19:32)
[2017-08-11] MEDS: BUDESONIDE/FORMOTEROL FUMARATE 160/4.5 60 PUFFS/INHALER INH SCH ×2 (07:51→20:42)
[2017-08-11] MEDS: VENLAFAXINE HCL XR 150 MG CAPXR PO SCH (07:51)
[2017-08-11] MEDS: FINASTERIDE 5 MG TAB PO SCH (07:51)
[2017-08-11] MEDS: LOSARTAN/HCTZ 50-12.5 EA TAB PO SCH (07:51)
[2017-08-11] MEDS: ASPIRIN 325 MG ECTAB PO SCH (07:51)
[2017-08-11] MEDS: AZITHROMYCIN 250 MG TAB PO SCH (07:52)
--- NOTE | 2017-08-11 08:13 | Clinical Documentation Query ---
CLINICAL DOCUMENTATION QUERY Dr. CARVAJAL, In your clinical opinion is this patient being managed for: (x ) Metabolic encephalopathy in the setting of advanced dementia in a pt with pneumonia ( ) Not Agree ( ) Other explanation of clinical findings (No explanation is considered a No Response) ( ) Unable to determine ( ) Need to Discuss (Phone CDS or qliq) (No discussion is considered a No Response) The medical record reflects the following clinical findings, treatment, and risk factors. Clinical Indicators: 72 yo male presenting with deteriorating mental status over the past few days, fever, urinary incontinence, and yellow sputum. CT head showed no acute changes. H/P indicates altered mental status mostly due to acute illness. Treatment: IV fluids, IV rocephin, Zithromax, pending blood and urine cx Risk Factors: age, preexisting dementia, pneumonia, fever Please clarify and document your clinical opinion in the progress notes and discharge summary. Terms such as "probable", "suspected", "likely", "questionable", "possible", or "still to be ruled out" are acceptable. IF IN AGREEMENT, YOU MUST DOCUMENT ABOVE DIAGNOSTIC STATEMENT IN DAILY PROGRESS NOTES AND DISCHARGE SUMMARY. This document is not part of the patient's record. Thank You, Jillian Villegas RN [phone]
--- NOTE | 2017-08-11 09:03 | Cardiology Follow-Up ---
Subjective Subjective Date of Service: August 11, 2017. Pt evaluation today including: conversation w/ family, physical exam, chart review, lab review, review of studies, review of inpatient medication list Additional Details: The patient had an uneventful night. He continues to have atrial fibrillation with rate control on no medications. He is hemodynamically stable. His daughter was in the room today we discussed anticoagulation and she agrees with conservative management of not continuing the anticoagulation after he leaves the hospital. Review of Systems Constitutional: + weakness Respiratory: + cough, No sputum Cardiac: No chest pain Objective Vital Signs Last Vital Signs Documentation Date Time Temp Pulse Resp B/P (MAP) Pulse Ox O2 Delivery O2 Flow Rate FiO2 08/11/17 08:00 Room Air 08/11/17 06:49 36.6 105 19 108/52 (70) 93 08/10/17 11:13 4.0 Physical Exam: General Appearance: no apparent distress, + obese, + pertinent finding ( underlying dementia, conversing well) ENT: normal ENT inspection Neck: thyroid normal, no JVD, no carotid bruits Respiratory/Chest: lungs clear, normal breath sounds, no respiratory distress, no accessory muscle use Cardiovascular: no edema, no murmur, + irregularly irregular Abdomen: normal bowel sounds, non tender, soft Extremities: normal range of motion, non-tender, normal inspection, no pedal edema, no calf tenderness Neurologic/Psychiatric: no motor/sensory deficits, alert, normal mood/affect, + disoriented Skin: normal color, warm/dry, no rash Lymphatic: no adenopathy Assessment and Plan Impression: 1. Persistent atrial fibrillation 2. Advanced dementia 3. Possible UTI Recommendations: As outlined above the patient will be treated with heart rate control but no anticoagulation after discharge. Otherwise he is hemodynamically stable and we plan on no additional cardiac testing at this time. Medications: Current Inpatient Medications Medications (Trade) Dose Ordered Sig/Paul Route Start Time Stop Time Status Last Admin Dose Admin Acetaminophen (Tylenol Tab) 650 mg Q4H PRN PO 08/10/17 02:45 09/09/17 02:44 08/10/17 21:23 650 MG Allopurinol (Zyloprim Tab) 300 mg HS PO 08/10/17 21:00 09/09/17 20:59 08/10/17 19:23 300 MG Aspirin (Ecotrin Tab) 325 mg DAILY PO 08/10/17 09:00 09/09/17 08:59 08/11/17 07:51 325 MG Atorvastatin Calcium (Lipitor Tab) 40 mg QPM PO 08/10/17 21:00 09/09/17 20:59 08/10/17 19:23 40 MG Finasteride (Proscar Tab) 5 mg DAILY PO 08/10/17 09:00 09/09/17 08:59 08/11/17 07:51 5 MG HCTZ/Losartan Potassium (Hyzaar 50-12.5 Tab) 1 tab DAILY PO 08/10/17 09:00 09/09/17 08:59 08/11/17 07:51 1 TAB Levothyroxine Sodium (Synthroid Tab) 100 mcg DAILYBB PO 08/10/17 06:00 09/09/17 06:59 08/11/17 06:17 100 MCG Montelukast Sodium (Singulair Tab) 10 mg HS PO 08/10/17 21:00 09/09/17 20:59 08/10/17 19:23 10 MG Venlafaxine HCl (effeXOR EXTENDED REL CAP) 150 mg DAILY PO 08/10/17 09:00 09/09/17 08:59 08/11/17 07:51 150 MG Ceftriaxone Sodium 1 gm/ Dextrose 50 ml @ 100 mls/hr Q24H IV 08/10/17 22:00 08/12/17 21:59 08/10/17 21:27 100 MLS/HR Albuterol/ Ipratropium (Duoneb) 3 ml Q4R PRN INH 08/10/17 04:15 09/09/17 04:14 Heparin Sodium/ Dextrose 500 ml @ 40 mls/hr [id number] IV 08/10/17 07:15 09/09/17 07:14 08/11/17 07:50 40 MLS/HR Azithromycin (Zithromax Tab) 500 mg QAM PO 08/11/17 09:00 08/17/17 08:59 08/11/17 07:52 500 MG Budesonide/ Formoterol Fumarate (Symbicort 160/ 4.5 Inh) 2 puffs BID INH 08/10/17 21:00 09/09/17 20:59 08/11/17 07:51 2 PUFFS Lorazepam (Ativan Tab) 0.5 mg TID PRN PO 08/10/17 10:15 09/09/17 10:14 Metoprolol Tartrate (Lopressor Iv) 2.5 mg Q5M PRN IV 08/10/17 22:30 09/09/17 22:29 08/10/17 22:33 2.5 MG Lab Results: Last 24 Hours Test 08/10/17 09:51 08/11/17 05:21 08/11/17 05:39 Activated Partial Thromboplast Time 55.1 SECONDS 50.9 SECONDS Partial Thromboplastin Ratio 2.1 2.0 White Blood Count 14.94 K/uL Red Blood Count 4.62 M/uL Hemoglobin 14.4 g/dL Hematocrit 41.7 % Mean Corpuscular Volume 90.3 fL Mean Corpuscular Hemoglobin 31.2 pg Mean Corpuscular Hemoglobin Concent 34.5 g/dl RDW Standard Deviation 44.6 fL RDW Coefficient of Variation 13.5 % Platelet Count 210 K/uL Mean Platelet Volume 9.6 fL Sodium Level 136 mmol/L Potassium Level 3.2 mmol/L Chloride Level 102 mmol/L Carbon Dioxide Level 26 mmol/L Anion Gap 8.0 mmol/L Blood Urea Nitrogen 14 mg/dl Creatinine 0.94 mg/dl Est Creatinine Clear Calc Drug Dose 114.0 ml/min Estimated GFR () 94.2 Estimated GFR (Non- 81.2 BUN/Creatinine Ratio 14.5 Random Glucose 135 mg/dl Calcium Level 8.4 mg/dl Magnesium Level 2.1 mg/dl
[2017-08-11] MEDS: ACETAMINOPHEN 325 MG TAB PO PRN ×2 (16:05→21:49)
--- NOTE | 2017-08-11 18:50 | Progress Note ---
Internal Med Progress Note Date of Service: August 11, 2017. Provider Documentation: SUBJECTIVE: Patient seen and examined at bedside. Denies new complaints. Has history of dementia. And when he was examined, medical doctor also spoke with patient's daughter OBJECTIVE: Exam: General- no distress Eyes- EOMI Neck- no JVD Lungs- CTABL, no wheezing Heart- tachycardia with irregular heart rhythm Abdomen- truncal obesity, positive bowel sounds, non tender Extremities-no gross edema Neuro- awake, verbal, but not able to demonstrate that he understands medical health ASSESSMENT & PLAN: This is a 72 year old male with a past medical history of mixed vascular/fronto- temporal dementia, depression/anxiety, asthma, HTN, hypothyroidism, obesity - presents with worsening confusion, ambulatory dysfunction, productive cough Community Acquired Pneumonia - CXR - Bibasilar opacities, right greater than left - Rocephin + Azithro for pneumonia, continue - blood culture from 08/10/17 pending - WBC increasing - send sputum culture Persistent atrial fibrillation - on IV heparin while in the hospital, but as per cardiology and patient's family it is consensus that patient is fall risk and would not be bridged to oral blood thinners for hospital discharge -rate control Lopressor 2.5 mg prn if HR above 120 bpm -blood pressure low side of normal but patient is also on blood pressure medications -will hold HCTZ/Losartan to increase blood pressure which will allow room for heart rate control medications increases HTN -blood pressure low side of normal from blood pressure medications -will hold HCTZ/Losartan to increase blood pressure which will allow room for heart rate control medications increases Hypokalemia -given oral potassium for serum potassium 3.2 Mixed vascular/fronto-temporal dementia Depression/Anxiety - follows with geriatric psych - was recently started on Remeron, which we can hold for now - continue Effexor Hypothyroidism - TSH within normal limits - continue Synthroid Asthma/Allergies - continue Singulair - PT/OT - PT evaluation on 08/10/17 recommends return to home after hospital stay but patient needs nursing assistance with mobility DVT ppx - IV heparin DNR Daughter [phone] Vital Signs: Date Time Temp Pulse Resp B/P (MAP) Pulse Ox O2 Delivery O2 Flow Rate FiO2 08/11/17 18:37 37.5 08/11/17 16:00 Room Air 08/11/17 15:21 38.0 117 20 106/51 (69) 93 Room Air 08/11/17 12:00 Room Air 08/11/17 11:23 37.1 99 18 119/77 (91) 93 08/11/17 08:00 Room Air 08/11/17 06:49 36.6 105 19 108/52 (70) 93 Room Air 08/11/17 04:00 CPAP 08/11/17 03:43 37.2 97 23 103/66 (78) 94 CPAP 08/11/17 00:01 CPAP 08/10/17 23:39 37.7 109 22 116/67 (83) 95 CPAP 08/10/17 22:33 127 117/63 08/10/17 20:00 Room Air 08/10/17 19:20 37.0 119 20 151/81 (104) 90 Room Air Lab Results: Results Past 24 Hours Test 08/11/17 05:21 08/11/17 05:39 Range/Units White Blood Count 14.94 4.8-10.8 K/uL Red Blood Count 4.62 4.7-6.1 M/uL Hemoglobin 14.4 14.0-18.0 g/dL Hematocrit 41.7 42-52 % Mean Corpuscular Volume 90.3 80-100 fL Mean Corpuscular Hemoglobin 31.2 25-34 pg Mean Corpuscular Hemoglobin Concent 34.5 32-36 g/dl RDW Standard Deviation 44.6 36.4-46.3 fL RDW Coefficient of Variation 13.5 11.5-14.5 % Platelet Count 210 130-400 K/uL Mean Platelet Volume 9.6 7.4-10.4 fL Sodium Level 136 136-145 mmol/L Potassium Level 3.2 3.5-5.1 mmol/L Chloride Level 102 98-107 mmol/L Carbon Dioxide Level 26 21-32 mmol/L Anion Gap 8.0 3-11 mmol/L Blood Urea Nitrogen 14 7-18 mg/dl Creatinine 0.94 0.60-1.40 mg/dl Est Creatinine Clear Calc Drug Dose 114.0 ml/min Estimated GFR () 94.2 Estimated GFR (Non- 81.2 BUN/Creatinine Ratio 14.5 10-20 Random Glucose 135 70-99 mg/dl Calcium Level 8.4 8.5-10.1 mg/dl Magnesium Level 2.1 1.8-2.4 mg/dl Activated Partial Thromboplast Time 50.9 21.0-31.0 SECONDS Partial Thromboplastin Ratio 2.0
[2017-08-11] MEDS: ALLOPURINOL 300 MG TAB PO SCH (20:42)
[2017-08-11] MEDS: MONTELUKAST SOD 10 MG TAB PO SCH (20:42)
[2017-08-11] MEDS: ATORVASTATIN 40 MG TAB PO SCH (20:42)
[2017-08-11] MEDS: CEFTRIAXONE SOD INJ 1 GM in DEXTROSE 5% ADD-VANTAGE 50ML 50 ML IV SCH (20:43)
[2017-08-12 03:41] VITALS: BP 113/67; PULSE 128; TEMP 36.9; O2SAT 94
[2017-08-12] MEDS: LEVOTHYROXINE 100 MCG TAB PO SCH (05:52)
[2017-08-12 06:25] LABS: PTT PATIENT 44.6 SECONDS (21.0-31.0)
[2017-08-12] MEDS ORDERED: HEPARIN IV BOLUS 4,000 UNIT in SYRINGE 0 ML IV ONE (06:45)
[2017-08-12 06:56] VITALS: BP 100/60; PULSE 109; TEMP 37; O2SAT 91
[2017-08-12 07:49] LABS: BASO % 0.1 %; BASO ABS # 0.01 K/uL (0-0.2); EOS % 0.4 %; EOS ABS # 0.05 K/uL (0-0.5); HEMATOCRIT 39.4 % (42-52); HEMOGLOBIN 13.8 g/dL (14.0-18.0); IG# 0.03 K/uL (0.00-0.02); LYMPH % 8.8 %; LYMPH ABS # 1.24 K/uL (1.2-3.4); MEAN CORPUSCULAR HEMOGLOBIN 31.5 pg (25-34); MEAN PLATELET VOLUME 9.4 fL (7.4-10.4); MONO % 8.1 %; MONO ABS # 1.14 K/uL (0.11-0.59); NEUT % 82.4 %; NEUT ABS # 11.61 K/uL (1.4-6.5); PLATELET COUNT 226 K/uL (130-400); RED CELL DISTRIBUTION WIDTH CV 13.6 % (11.5-14.5); RED CELL DISTRIBUTION WIDTH SD 44.7 fL (36.4-46.3); WHITE BLOOD COUNT 14.08 K/uL (4.8-10.8)
[2017-08-12 08:10] LABS: ALBUMIN 2.4 gm/dl (3.4-5.0); CALCIUM 8.5 mg/dl (8.5-10.1); CREATININE 0.94 mg/dl (0.60-1.40); POTASSIUM 3.5 mmol/L (3.5-5.1)
[2017-08-12 08:13] LABS: TOTAL PROTEIN 6.5 gm/dl (6.4-8.2)
[2017-08-12] MEDS: VENLAFAXINE HCL XR 150 MG CAPXR PO SCH (08:21)
[2017-08-12] MEDS: BUDESONIDE/FORMOTEROL FUMARATE 160/4.5 60 PUFFS/INHALER INH SCH ×2 (08:21→20:08)
[2017-08-12] MEDS: AZITHROMYCIN 250 MG TAB PO SCH (08:22)
[2017-08-12] MEDS: FINASTERIDE 5 MG TAB PO SCH (08:22)
[2017-08-12] MEDS: ASPIRIN 325 MG ECTAB PO SCH (08:22)
[2017-08-12] MEDS: HEPARIN 25,000 UNIT/500ML D5W 500 ML IV SCH ×2 (08:26→20:16)
--- NOTE | 2017-08-12 08:48 | Cardiology Follow-Up ---
Subjective Subjective Date of Service: August 12, 2017. Pt evaluation today including: conversation w/ family, physical exam, chart review, lab review, review of studies, review of inpatient medication list Additional Details: The patient had an uneventful night. It appears that he now has a diagnosis of a community-acquired pneumonia. He remains hemodynamically stable. Review of Systems Constitutional: + weakness Respiratory: + cough, No sputum Cardiac: No chest pain Objective Vital Signs Last Vital Signs Documentation Date Time Temp Pulse Resp B/P (MAP) Pulse Ox O2 Delivery O2 Flow Rate FiO2 08/12/17 08:00 Room Air 08/12/17 06:56 37.0 109 18 100/60 (73) 91 08/10/17 11:13 4.0 Physical Exam: General Appearance: no apparent distress, + obese, + pertinent finding ( underlying dementia, conversing well) ENT: normal ENT inspection Neck: thyroid normal, no JVD, no carotid bruits Respiratory/Chest: lungs clear, normal breath sounds, no respiratory distress, no accessory muscle use Cardiovascular: no edema, no murmur, + irregularly irregular Abdomen: normal bowel sounds, non tender, soft Extremities: normal range of motion, non-tender, normal inspection, no pedal edema, no calf tenderness Neurologic/Psychiatric: no motor/sensory deficits, alert, normal mood/affect, + disoriented Skin: normal color, warm/dry, no rash Lymphatic: no adenopathy Assessment and Plan Impression: 1. Persistent atrial fibrillation 2. Advanced dementia 3. Pneumonia Recommendations: As outlined above the patient will be treated with heart rate control but no anticoagulation after discharge. Otherwise he is hemodynamically stable and we plan on no additional cardiac testing at this time. Cardiology will sign off the case. Please reconsult if necessary. Medications: Current Inpatient Medications Medications (Trade) Dose Ordered Sig/Paul Route Start Time Stop Time Status Last Admin Dose Admin Acetaminophen (Tylenol Tab) 650 mg Q4H PRN PO 08/10/17 02:45 09/09/17 02:44 08/11/17 21:49 650 MG Allopurinol (Zyloprim Tab) 300 mg HS PO 08/10/17 21:00 09/09/17 20:59 08/11/17 20:42 300 MG Aspirin (Ecotrin Tab) 325 mg DAILY PO 08/10/17 09:00 09/09/17 08:59 08/12/17 08:22 325 MG Atorvastatin Calcium (Lipitor Tab) 40 mg QPM PO 08/10/17 21:00 09/09/17 20:59 08/11/17 20:42 40 MG Finasteride (Proscar Tab) 5 mg DAILY PO 08/10/17 09:00 09/09/17 08:59 08/12/17 08:22 5 MG Levothyroxine Sodium (Synthroid Tab) 100 mcg DAILYBB PO 08/10/17 06:00 09/09/17 06:59 08/12/17 05:52 100 MCG Montelukast Sodium (Singulair Tab) 10 mg HS PO 08/10/17 21:00 09/09/17 20:59 08/11/17 20:42 10 MG Venlafaxine HCl (effeXOR EXTENDED REL CAP) 150 mg DAILY PO 08/10/17 09:00 09/09/17 08:59 08/12/17 08:21 150 MG Ceftriaxone Sodium 1 gm/ Dextrose 50 ml @ 100 mls/hr Q24H IV 08/10/17 22:00 08/12/17 21:59 08/11/17 20:43 100 MLS/HR Albuterol/ Ipratropium (Duoneb) 3 ml Q4R PRN INH 08/10/17 04:15 09/09/17 04:14 Heparin Sodium/ Dextrose 500 ml @ 44 mls/hr [id number] IV 08/10/17 07:15 09/09/17 07:14 08/12/17 08:26 44 MLS/HR Azithromycin (Zithromax Tab) 500 mg QAM PO 08/11/17 09:00 08/17/17 08:59 08/12/17 08:22 500 MG Budesonide/ Formoterol Fumarate (Symbicort 160/ 4.5 Inh) 2 puffs BID INH 08/10/17 21:00 09/09/17 20:59 08/12/17 08:21 2 PUFFS Lorazepam (Ativan Tab) 0.5 mg TID PRN PO 08/10/17 10:15 09/09/17 10:14 Metoprolol Tartrate (Lopressor Iv) 2.5 mg Q5M PRN IV 08/10/17 22:30 09/09/17 22:29 08/10/17 22:33 2.5 MG Lab Results: Last 24 Hours Test 08/12/17 05:19 White Blood Count 14.08 K/uL Red Blood Count 4.38 M/uL Hemoglobin 13.8 g/dL Hematocrit 39.4 % Mean Corpuscular Volume 90.0 fL Mean Corpuscular Hemoglobin 31.5 pg Mean Corpuscular Hemoglobin Concent 35.0 g/dl Platelet Count 226 K/uL Mean Platelet Volume 9.4 fL Neutrophils (%) (Auto) 82.4 % Lymphocytes (%) (Auto) 8.8 % Monocytes (%) (Auto) 8.1 % Eosinophils (%) (Auto) 0.4 % Basophils (%) (Auto) 0.1 % Neutrophils # (Auto) 11.61 K/uL Lymphocytes # (Auto) 1.24 K/uL Monocytes # (Auto) 1.14 K/uL Eosinophils # (Auto) 0.05 K/uL Basophils # (Auto) 0.01 K/uL RDW Standard Deviation 44.7 fL RDW Coefficient of Variation 13.6 % Immature Granulocyte % (Auto) 0.2 % Immature Granulocyte # (Auto) 0.03 K/uL Activated Partial Thromboplast Time 44.6 SECONDS Partial Thromboplastin Ratio 1.7 Sodium Level 135 mmol/L Potassium Level 3.5 mmol/L Chloride Level 101 mmol/L Carbon Dioxide Level 26 mmol/L Anion Gap 8.0 mmol/L Blood Urea Nitrogen 13 mg/dl Creatinine 0.94 mg/dl Est Creatinine Clear Calc Drug Dose 114.0 ml/min Estimated GFR () 94.2 Estimated GFR (Non- 81.2 BUN/Creatinine Ratio 14.0 Random Glucose 110 mg/dl Calcium Level 8.5 mg/dl Total Bilirubin 1.8 mg/dl Aspartate Amino Transf (AST/SGOT) 23 U/L Alanine Aminotransferase (ALT/SGPT) 17 U/L Alkaline Phosphatase 74 U/L Total Protein 6.5 gm/dl Albumin 2.4 gm/dl Globulin 4.1 gm/dl Albumin/Globulin Ratio 0.6
[2017-08-12] MEDS ORDERED: METOPROLOL TARTRATE 25 MG TAB PO STA (11:50)
[2017-08-12 12:02] VITALS: BP 132/73; PULSE 117; TEMP 37.4; O2SAT 94
[2017-08-12 13:07] LABS: PTT PATIENT 54.2 SECONDS (21.0-31.0)
[2017-08-12 15:33] VITALS: BP 120/69; PULSE 104; TEMP 36.4; O2SAT 94
--- NOTE | 2017-08-12 15:50 | DIAGNOSTIC IMAGING REPORT ---
CHEST ONE VIEW PORTABLE HISTORY: 72 years-old Male pneumonia follow up X ray follow-up study in a patient with recent pneumonia COMPARISON: Chest radiograph 08/09/2017 TECHNIQUE: Portable AP view of the chest FINDINGS: Cardiac silhouette is again mildly enlarged. Lungs are mildly hypoinflated. No pneumothorax or large pleural effusion. Mild right hemidiaphragmatic elevation persists. There are persistent right greater than left bibasilar opacities. Linear subsegmental opacities about the right hilum are also noted. The bones of the chest appear grossly intact. Degenerative changes of the shoulders and spine. IMPRESSION: 1. Hypoinflation with subsegmental bibasilar and right perihilar opacities favoring atelectasis with pneumonia thought to be less likely. 2. Cardiomegaly without overt pulmonary edema. The above report was generated using voice recognition software. It may contain grammatical, syntax or spelling errors. Electronically signed by: Jaxson Ngo M.D. 08/12/2017 3:49 PM Dictated Date/Time: 08/12/2017 3:48 PM
--- NOTE | 2017-08-12 17:45 | Progress Note ---
Internal Med Progress Note Date of Service: August 12, 2017. Provider Documentation: SUBJECTIVE: Patient seen and examined at bedside. Denies new complaints. OBJECTIVE: Exam: General- no distress Eyes- EOMI Neck- no JVD Lungs- CTABL, no wheezing Heart- mild, tachycardia with irregular heart rhythm Abdomen- truncal obesity, positive bowel sounds, non tender Extremities-no gross edema Neuro- awake, verbal ASSESSMENT & PLAN: This is a 72 year old male with a past medical history of mixed vascular/fronto- temporal dementia, depression/anxiety, asthma, HTN, hypothyroidism, obesity - presented with worsening confusion, ambulatory dysfunction, productive cough Community Acquired Pneumonia - CXR - Bibasilar opacities, right greater than left - Rocephin + Azithro for pneumonia, continue - blood culture from 08/10/17 no growth to date - WBC 14,900 to 14,000 - sputum culture was ordered but no samples provided -CXR on 08/12/17 1. Hypoinflation with subsegmental bibasilar and right perihilar opacities favoring atelectasis with pneumonia thought to be less likely. 2. Cardiomegaly without overt pulmonary edema. -if WBC continues to downtrend, may switch to oral antibiotics to finish pneumonia treatment regimen Persistent atrial fibrillation - on IV heparin while in the hospital, but as per cardiology and patient's family it is consensus that patient is fall risk and would not be bridged to oral blood thinners for hospital discharge -rate control Lopressor 2.5 mg prn if HR above 120 bpm -HCTZ/Losartan to increase blood pressure which will allow room for heart rate control medications increases -metoprolol tartrate 12.5 mg BID started as new medications HTN -hold HCTZ/Losartan to increase blood pressure which will allow room for heart rate control medications increases Hypokalemia -was given oral potassium for serum potassium 3.2 on 08/11/17, serum potassium is 3.5 which is adequate Mixed vascular/fronto-temporal dementia Depression/Anxiety - follows with geriatric psych - was recently started on Remeron, which are holding for now - continue Effexor Hypothyroidism - TSH within normal limits - continue Synthroid Asthma/Allergies - continue Singulair - PT/OT - PT evaluation on 08/10/17 recommends return to home after hospital stay but patient needs nursing assistance with mobility DVT ppx - IV heparin DNR Daughter [phone] Disposition: plan is to likely to return home when heart rate better controlled and if WBC continues to decline Vital Signs: Date Time Temp Pulse Resp B/P (MAP) Pulse Ox O2 Delivery O2 Flow Rate FiO2 08/12/17 15:33 36.4 104 18 120/69 (86) 94 Room Air 08/12/17 15:15 Room Air 08/12/17 12:02 37.4 117 18 132/73 (92) 94 Room Air 08/12/17 12:00 Room Air 08/12/17 08:00 Room Air 08/12/17 06:56 37.0 109 18 100/60 (73) 91 Room Air 08/12/17 04:00 Room Air 08/12/17 03:41 36.9 128 21 113/67 (82) 94 CPAP 08/12/17 00:00 Room Air 08/11/17 23:58 37.4 121 17 101/63 (76) 92 Room Air 08/11/17 20:05 Room Air 08/11/17 19:06 37.5 108 20 132/76 (94) 95 Room Air 08/11/17 18:37 37.5 Lab Results: Results Past 24 Hours Test 08/12/17 05:19 08/12/17 12:35 Range/Units White Blood Count 14.08 4.8-10.8 K/uL Red Blood Count 4.38 4.7-6.1 M/uL Hemoglobin 13.8 14.0-18.0 g/dL Hematocrit 39.4 42-52 % Mean Corpuscular Volume 90.0 80-100 fL Mean Corpuscular Hemoglobin 31.5 25-34 pg Mean Corpuscular Hemoglobin Concent 35.0 32-36 g/dl Platelet Count 226 130-400 K/uL Mean Platelet Volume 9.4 7.4-10.4 fL Neutrophils (%) (Auto) 82.4 % Lymphocytes (%) (Auto) 8.8 % Monocytes (%) (Auto) 8.1 % Eosinophils (%) (Auto) 0.4 % Basophils (%) (Auto) 0.1 % Neutrophils # (Auto) 11.61 1.4-6.5 K/uL Lymphocytes # (Auto) 1.24 1.2-3.4 K/uL Monocytes # (Auto) 1.14 0.11-0.59 K/uL Eosinophils # (Auto) 0.05 0-0.5 K/uL Basophils # (Auto) 0.01 0-0.2 K/uL RDW Standard Deviation 44.7 36.4-46.3 fL RDW Coefficient of Variation 13.6 11.5-14.5 % Immature Granulocyte % (Auto) 0.2 % Immature Granulocyte # (Auto) 0.03 0.00-0.02 K/uL Activated Partial Thromboplast Time 44.6 54.2 21.0-31.0 SECONDS Partial Thromboplastin Ratio 1.7 2.1 Sodium Level 135 136-145 mmol/L Potassium Level 3.5 3.5-5.1 mmol/L Chloride Level 101 98-107 mmol/L Carbon Dioxide Level 26 21-32 mmol/L Anion Gap 8.0 3-11 mmol/L Blood Urea Nitrogen 13 7-18 mg/dl Creatinine 0.94 0.60-1.40 mg/dl Est Creatinine Clear Calc Drug Dose 114.0 ml/min Estimated GFR () 94.2 Estimated GFR (Non- 81.2 BUN/Creatinine Ratio 14.0 10-20 Random Glucose 110 70-99 mg/dl Calcium Level 8.5 8.5-10.1 mg/dl Total Bilirubin 1.8 0.2-1 mg/dl Aspartate Amino Transf (AST/SGOT) 23 15-37 U/L Alanine Aminotransferase (ALT/SGPT) 17 12-78 U/L Alkaline Phosphatase 74 45-117 U/L Total Protein 6.5 6.4-8.2 gm/dl Albumin 2.4 3.4-5.0 gm/dl Globulin 4.1 2.5-4.0 gm/dl Albumin/Globulin Ratio 0.6 0.9-2
[2017-08-12 19:40] VITALS: BP 121/88; PULSE 114; PULSE 56; PULSE 90; TEMP 36.5; O2SAT 90
[2017-08-12] MEDS: ATORVASTATIN 40 MG TAB PO SCH (20:08)
[2017-08-12] MEDS: MONTELUKAST SOD 10 MG TAB PO SCH (20:08)
[2017-08-12] MEDS: ALLOPURINOL 300 MG TAB PO SCH (20:08)
[2017-08-12] MEDS: METOPROLOL TARTRATE 25 MG TAB PO SCH (20:09)
[2017-08-12 23:39] VITALS: BP 119/75; PULSE 115; TEMP 38.1; O2SAT 94
[2017-08-12] MEDS: ACETAMINOPHEN 325 MG TAB PO PRN (23:51)
[2017-08-13 03:37] VITALS: BP 116/68; PULSE 113; TEMP 37.2; O2SAT 93
[2017-08-13 05:46] LABS: BASO % 0.2 %; BASO ABS # 0.02 K/uL (0-0.2); EOS % 0.8 %; EOS ABS # 0.09 K/uL (0-0.5); HEMATOCRIT 39.8 % (42-52); HEMOGLOBIN 13.7 g/dL (14.0-18.0); IG# 0.03 K/uL (0.00-0.02); LYMPH % 12.9 %; LYMPH ABS # 1.45 K/uL (1.2-3.4); MEAN CELL VOLUME 89.8 fL (80-100); MEAN CORPUSCULAR HEMOGLOBIN 30.9 pg (25-34); MEAN CORPUSCULAR HGB CONC 34.4 g/dl (32-36); MEAN PLATELET VOLUME 8.9 fL (7.4-10.4); MONO % 8.6 %; MONO ABS # 0.97 K/uL (0.11-0.59); NEUT % 77.2 %; NEUT ABS # 8.67 K/uL (1.4-6.5); PLATELET COUNT 212 K/uL (130-400); RED CELL DISTRIBUTION WIDTH CV 13.5 % (11.5-14.5); RED CELL DISTRIBUTION WIDTH SD 44.5 fL (36.4-46.3); WHITE BLOOD COUNT 11.23 K/uL (4.8-10.8)
[2017-08-13 05:58] LABS: PTT PATIENT 33.5 SECONDS (21.0-31.0)
[2017-08-13] MEDS: LEVOTHYROXINE 100 MCG TAB PO SCH (05:59)
[2017-08-13] MEDS: HEPARIN 25,000 UNIT/500ML D5W 500 ML IV SCH ×2 (06:02→06:28)
[2017-08-13 06:30] LABS: ALBUMIN 2.3 gm/dl (3.4-5.0); CALCIUM 8.3 mg/dl (8.5-10.1); CREATININE 0.93 mg/dl (0.60-1.40); POTASSIUM 3.3 mmol/L (3.5-5.1); TOTAL PROTEIN 6.4 gm/dl (6.4-8.2)
[2017-08-13] MEDS ORDERED: HEPARIN IV BOLUS 9,000 UNIT in SYRINGE 0 ML IV ONE (06:30)
[2017-08-13 06:42] VITALS: BP 131/75; PULSE 108; TEMP 37.5; O2SAT 93
[2017-08-13] MEDS ORDERED: POTASSIUM CHLORIDE 20 MEQ TABCR PO STA (07:26)
[2017-08-13] MEDS: BUDESONIDE/FORMOTEROL FUMARATE 160/4.5 60 PUFFS/INHALER INH SCH (08:27)
[2017-08-13] MEDS: METOPROLOL TARTRATE 25 MG TAB PO SCH (08:28)
[2017-08-13] MEDS: ASPIRIN 325 MG ECTAB PO SCH (08:28)
[2017-08-13] MEDS: AZITHROMYCIN 250 MG TAB PO SCH (08:29)
[2017-08-13] MEDS: FINASTERIDE 5 MG TAB PO SCH (08:29)
[2017-08-13] MEDS ORDERED: METOPROLOL TARTRATE 25 MG TAB PO SCH (09:00)
[2017-08-13] MEDS: VENLAFAXINE HCL XR 150 MG CAPXR PO SCH (09:58)
[2017-08-13 12:08] VITALS: BP 128/80; PULSE 103; TEMP 37.6; O2SAT 92
[2017-08-13 13:29] LABS: PTT PATIENT 67.2 SECONDS (21.0-31.0)
[2017-08-13 15:29] VITALS: BP 137/78; PULSE 106; TEMP 37.2; O2SAT 96
[2017-08-13] MEDS ORDERED: LPR25 PO (15:56)
[2017-08-13] MEDS ORDERED: MISC-796 (15:58)
[2017-08-13] MEDS ORDERED: MISC-573 (15:59)
[2017-08-13] MEDS ORDERED: AMOX875T PO (16:03)
[2017-08-13] MEDS ORDERED: AZIT-57 PO (16:03)
--- NOTE | 2017-08-13 16:52 | Progress Note ---
Internal Med Progress Note Date of Service: August 13, 2017. Provider Documentation: SUBJECTIVE: Patient seen and examined at bedside. Denies new complaints. Breathing on room air. Heart rate mildly tachycardic but generally stable OBJECTIVE: Exam: General- no distress Eyes- EOMI Neck- no JVD Lungs- CTABL, no wheezing Heart- mild tachycardia with irregular heart rhythm Abdomen- truncal obesity, positive bowel sounds, non tender Extremities-no gross edema Neuro- awake, verbal ASSESSMENT & PLAN: This is a 72 year old male with a past medical history of mixed vascular/fronto- temporal dementia, depression/anxiety, asthma, HTN, hypothyroidism, obesity - presented with worsening confusion, ambulatory dysfunction, productive cough Community Acquired Pneumonia - CXR - Bibasilar opacities, right greater than left - Ceftriaxone and Azithromycin for pneumonia, continue - blood culture from 08/10/17 no growth to date - WBC 14,900 to 11,000 - sputum culture was ordered but no samples provided -CXR on 08/12/17 1. Hypoinflation with subsegmental bibasilar and right perihilar opacities favoring atelectasis with pneumonia thought to be less likely. 2. Cardiomegaly without overt pulmonary edema. -Stop Ceftriaxone and continue as prescription as augmentin. Continue azithromycin as outpatient prescription Persistent atrial fibrillation - on IV heparin while in the hospital, but as per cardiology and patient's family it is consensus that patient is fall risk and would not be bridged to oral blood thinners for hospital discharge -IV heparin stopped on 08/13/17 -HCTZ/Losartan has been discontinued to allow for metoprolol tartrate 12.5 mg BID HTN -HCTZ/Losartan has been discontinued to allow for metoprolol tartrate 12.5 mg BID Hypokalemia -serum potassium 3.3 and patient given oral potassium 80 meq on discharge day while on the hospital Mixed vascular/fronto-temporal dementia Depression/Anxiety - follows with geriatric psych - was recently started on Remeron, which was held in the hospital. Can be stopped on discharge. - continue Effexor Hypothyroidism - TSH within normal limits - continue Synthroid Asthma/Allergies - continue Singulair - PT/OT evaluated the patient Discharge Instructions to home with home health services. Continue completion of pneumonia oral antibiotics. Continue medications for heart rate control Follow up with primary care doctor [facility]19[facility]2017 [facility] follow up whether need additional heart rate control medications and for follow up resolution of pneumonia Vital Signs: Date Time Temp Pulse Resp B/P (MAP) Pulse Ox O2 Delivery O2 Flow Rate FiO2 08/13/17 15:29 37.2 106 19 137/78 (97) 96 Room Air 08/13/17 15:28 Room Air 08/13/17 12:08 37.6 103 16 128/80 (96) 92 Room Air 08/13/17 12:00 Room Air 08/13/17 08:00 Room Air 08/13/17 06:42 37.5 108 20 131/75 (93) 93 Room Air 08/13/17 04:00 Room Air 08/13/17 03:37 37.2 113 20 116/68 (84) 93 Room Air 08/12/17 23:59 Room Air 08/12/17 23:39 38.1 115 20 119/75 (90) 94 Room Air 08/12/17 20:00 Room Air 08/12/17 19:40 36.5 114 19 121/88 (99) 90 Room Air Lab Results: Results Past 24 Hours Test 08/13/17 05:34 08/13/17 12:45 Range/Units White Blood Count 11.23 4.8-10.8 K/uL Red Blood Count 4.43 4.7-6.1 M/uL Hemoglobin 13.7 14.0-18.0 g/dL Hematocrit 39.8 42-52 % Mean Corpuscular Volume 89.8 80-100 fL Mean Corpuscular Hemoglobin 30.9 25-34 pg Mean Corpuscular Hemoglobin Concent 34.4 32-36 g/dl Platelet Count 212 130-400 K/uL Mean Platelet Volume 8.9 7.4-10.4 fL Neutrophils (%) (Auto) 77.2 % Lymphocytes (%) (Auto) 12.9 % Monocytes (%) (Auto) 8.6 % Eosinophils (%) (Auto) 0.8 % Basophils (%) (Auto) 0.2 % Neutrophils # (Auto) 8.67 1.4-6.5 K/uL Lymphocytes # (Auto) 1.45 1.2-3.4 K/uL Monocytes # (Auto) 0.97 0.11-0.59 K/uL Eosinophils # (Auto) 0.09 0-0.5 K/uL Basophils # (Auto) 0.02 0-0.2 K/uL RDW Standard Deviation 44.5 36.4-46.3 fL RDW Coefficient of Variation 13.5 11.5-14.5 % Immature Granulocyte % (Auto) 0.3 % Immature Granulocyte # (Auto) 0.03 0.00-0.02 K/uL Activated Partial Thromboplast Time 33.5 67.2 21.0-31.0 SECONDS Partial Thromboplastin Ratio 1.3 2.6 Sodium Level 138 136-145 mmol/L Potassium Level 3.3 3.5-5.1 mmol/L Chloride Level 103 98-107 mmol/L Carbon Dioxide Level 28 21-32 mmol/L Anion Gap 7.0 3-11 mmol/L Blood Urea Nitrogen 14 7-18 mg/dl Creatinine 0.93 0.60-1.40 mg/dl Est Creatinine Clear Calc Drug Dose 114.3 ml/min Estimated GFR () 95.4 Estimated GFR (Non- 82.3 BUN/Creatinine Ratio 14.9 10-20 Random Glucose 94 70-99 mg/dl Calcium Level 8.3 8.5-10.1 mg/dl Total Bilirubin 1.4 0.2-1 mg/dl Aspartate Amino Transf (AST/SGOT) 27 15-37 U/L Alanine Aminotransferase (ALT/SGPT) 20 12-78 U/L Alkaline Phosphatase 78 45-117 U/L Total Protein 6.4 6.4-8.2 gm/dl Albumin 2.3 3.4-5.0 gm/dl Globulin 4.1 2.5-4.0 gm/dl Albumin/Globulin Ratio 0.6 0.9-2
--- NOTE | 2017-08-13 16:56 | Discharge Instructions ---
Discharge Instructions Date of Service August 13, 2017. Admission Reason for Admission: A-Fib, Fever Discharge Discharge Diagnosis / Problem: pneumonia, atrial fibrillation, dementia Discharge Goals Goal(s): Improve function, Improve disease control Activity Recommendations Activity Limitations: per Instructions/Follow-up section Shower/Bathe: no limitations . Instructions / Follow-Up Instructions / Follow-Up This is a 72 year old male with a past medical history of mixed vascular/fronto- temporal dementia, depression/anxiety, asthma, HTN, hypothyroidism, obesity - presented with worsening confusion, ambulatory dysfunction, productive cough Community Acquired Pneumonia - CXR - Bibasilar opacities, right greater than left - Ceftriaxone and Azithromycin for pneumonia, continue - blood culture from 08/10/17 no growth to date - WBC 14,900 to 11,000 - sputum culture was ordered but no samples provided -CXR on 08/12/17 1. Hypoinflation with subsegmental bibasilar and right perihilar opacities favoring atelectasis with pneumonia thought to be less likely. 2. Cardiomegaly without overt pulmonary edema. -Stop Ceftriaxone and continue as prescription as augmentin. Continue azithromycin as outpatient prescription Persistent atrial fibrillation - on IV heparin while in the hospital, but as per cardiology and patient's family it is consensus that patient is fall risk and would not be bridged to oral blood thinners for hospital discharge -IV heparin stopped on 08/13/17 -HCTZ/Losartan has been discontinued to allow for metoprolol tartrate 12.5 mg BID HTN -HCTZ/Losartan has been discontinued to allow for metoprolol tartrate 12.5 mg BID Hypokalemia -serum potassium 3.3 and patient given oral potassium 80 meq on discharge day while on the hospital Mixed vascular/fronto-temporal dementia Depression/Anxiety - follows with geriatric psych - was recently started on Remeron, which was held in the hospital. Can be stopped on discharge. - continue Effexor Hypothyroidism - TSH within normal limits - continue Synthroid Asthma/Allergies - continue Singulair - PT/OT evaluated the patient Discharge Instructions to home with home health services. Continue completion of pneumonia oral antibiotics. Continue medications for heart rate control Follow up with primary care doctor on 08/19/2017 [facility] Brijesh Darnell MD for follow up whether need additional heart rate control medications and for follow up resolution of pneumonia Current Hospital Diet Patient's current hospital diet: Low Sodium Diet (2gm Na), AHA Diet (Heart Healthy) Discharge Diet Recommended Diet: AHA Diet (Heart Healthy), Low Sodium Diet (2gm Na) Pending Studies Studies pending at discharge: no Laboratory Results 08/13/17 05:34 Red Blood Count 4.43, Mean Corpuscular Volume 89.8, Mean Corpuscular Hemoglobin 30.9, Mean Corpuscular Hemoglobin Concent 34.4, Mean Platelet Volume 8.9, Neutrophils (%) (Auto) 77.2, Lymphocytes (%) (Auto) 12.9, Monocytes (%) (Auto) 8.6, Eosinophils (%) (Auto) 0.8, Basophils (%) (Auto) 0.2, Neutrophils # (Auto) 8.67, Lymphocytes # (Auto) 1.45, Monocytes # (Auto) 0.97, Eosinophils # (Auto) 0.09, Basophils # (Auto) 0.02 08/13/17 05:34 Test 08/09/17 00:35 08/10/17 03:50 08/10/17 07:34 08/11/17 05:21 Prothrombin Time 10.6 SECONDS (9.0-12.0) Prothromb Time International Ratio 1.0 (0.9-1.1) Direct Bilirubin 0.5 mg/dl (0-0.2) Lipase 77 U/L (73-393) Thyroid Stimulating Hormone (TSH) 1.310 uIu/ml (0.300-4.500) Urine Color YELLOW Urine Appearance ERROR (CLEAR) Urine pH 6.5 (4.5-7.5) Urine Specific [place] 1.013 (1.000-1.030) Urine Protein NEG (NEG) Urine Glucose (UA) NEG (NEG) Urine Ketones NEG (NEG) Urine Occult Blood NEG (NEG) Urine Nitrite NEG (NEG) Urine Bilirubin NEG (NEG) Urine Urobilinogen NEG (NEG) Urine Leukocyte Esterase NEG (NEG) Troponin I < 0.015 ng/ml (0-0.045) Procalcitonin < 0.05 ng/ml (0-0.5) Magnesium Level 2.1 mg/dl (1.8-2.4) Test 08/13/17 05:34 08/13/17 12:45 White Blood Count 11.23 K/uL (4.8-10.8) Red Blood Count 4.43 M/uL (4.7-6.1) Hemoglobin 13.7 g/dL (14.0-18.0) Hematocrit 39.8 % (42-52) Mean Corpuscular Volume 89.8 fL (80-100) Mean Corpuscular Hemoglobin 30.9 pg (25-34) Mean Corpuscular Hemoglobin Concent 34.4 g/dl (32-36) Platelet Count 212 K/uL (130-400) Mean Platelet Volume 8.9 fL (7.4-10.4) Neutrophils (%) (Auto) 77.2 % Lymphocytes (%) (Auto) 12.9 % Monocytes (%) (Auto) 8.6 % Eosinophils (%) (Auto) 0.8 % Basophils (%) (Auto) 0.2 % Neutrophils # (Auto) 8.67 K/uL (1.4-6.5) Lymphocytes # (Auto) 1.45 K/uL (1.2-3.4) Monocytes # (Auto) 0.97 K/uL (0.11-0.59) Eosinophils # (Auto) 0.09 K/uL (0-0.5) Basophils # (Auto) 0.02 K/uL (0-0.2) RDW Standard Deviation 44.5 fL (36.4-46.3) RDW Coefficient of Variation 13.5 % (11.5-14.5) Immature Granulocyte % (Auto) 0.3 % Immature Granulocyte # (Auto) 0.03 K/uL (0.00-0.02) Anion Gap 7.0 mmol/L (3-11) Est Creatinine Clear Calc Drug Dose 114.3 ml/min Estimated GFR () 95.4 Estimated GFR (Non- 82.3 BUN/Creatinine Ratio 14.9 (10-20) Calcium Level 8.3 mg/dl (8.5-10.1) Total Bilirubin 1.4 mg/dl (0.2-1) Aspartate Amino Transf (AST/SGOT) 27 U/L (15-37) Alanine Aminotransferase (ALT/SGPT) 20 U/L (12-78) Alkaline Phosphatase 78 U/L (45-117) Total Protein 6.4 gm/dl (6.4-8.2) Albumin 2.3 gm/dl (3.4-5.0) Globulin 4.1 gm/dl (2.5-4.0) Albumin/Globulin Ratio 0.6 (0.9-2) Activated Partial Thromboplast Time 67.2 SECONDS (21.0-31.0) Partial Thromboplastin Ratio 2.6 Date/Time Source Procedure Growth Status 08/10/17 03:09 Blood Blood Culture - Preliminary NO GROWTH TO DATE. Resulted 08/10/17 06:00 Nasal MRSA DNA Surveillance Screen - Final Specimen Negative for MRSA by DNA Probe Complete 08/10/17 03:50 Urine , Clean Catch Urine Culture - Final MORE THAN THREE TYPES OF ORGANISMS IL... Complete Medical Emergencies . Who to Call and When: Medical Emergencies: If at any time you feel your situation is an emergency, please call 911 immediately. . Non-Emergent Contact Non-Emergency issues call your: Primary Care Provider Call Non-Emergent contact if: you have any medication questions . . "Provider Documentation" section prepared by Nigel Martinez. .
--- NOTE | 2017-08-13 16:57 | Discharge Summary ---
Discharge Summary Date of Service August 13, 2017. Discharge Summary Admission Date: August 10, 2017 at 02:41 Discharge Date: August 13, 2017 Principal Diagnosis: pneumonia, atrial fibrillation, dementia Medication Reconciliation New Medications: Amoxicillin & Pot Clavulanate (Augmentin 875-125 mg) 1 Tab Tab 875 MG PO BID for 3 Days, #6 TAB Misc. Devices (Wheelchair) 1 Mis Mis UNIT, #1 Misc. Devices (Roller Walker) 1 Mis Mis UNIT, #1 Azithromycin (Azithromycin) 250 Mg Tab 500 MG PO QAM for 3 Days, #6 TAB Metoprolol Tartrate (Lopressor) 25 Mg Tab 12.5 MG PO BID for 30 Days, #60 TAB Continued Medications: Albuterol (Ventolin Hfa) Aers 1-2 PUFFS INH PRN Allopurinol (Zyloprim) 300 Mg Tab 300 MG PO HS, TAB Aspirin (Aspirin Ec) 325 Mg Tab 325 MG PO DAILY Atorvastatin (Lipitor) 40 Mg Tab 40 MG PO QPM, TAB Azelastine HCl (Azelastine Hydrochloride) 0.1 % Spr 2 SPRAYS CARLOS BID Budesonide/Formoterol Fumarate (Symbicort 160/4.5 Inhaler ) Aero 2 PUFFS INH BID, INHALER Ergocalciferol (Vitamin D 77334 Unit) 50,000 Unit Cap 27497 UNIT PO WK, CAP pt takes on fridays Finasteride (Proscar) 5 Mg Tab 1 TAB PO DAILY, % 11 Refills Ketotifen Fumarate (Ophth) ([place]) 0.025 % Abel 1 DROPS OPB q8-12hours PRN for itchy eyes, #10 ML 3 Refills Levothyroxine Sodium (Levothyroxine Sodium) 100 Mcg Tab 100 MCG PO DAILY for 90 Days, #90 TAB 3 Refills Lorazepam (Ativan) 1 Mg Tab 0.5 MG PO TID PRN for Anxiety/Agitation, TAB Montelukast Sodium (Singulair) 10 Mg Tab 10 MG PO HS, TAB Venlafaxine Hcl (Effexor Extended Rel) 150 Mg Cap 150 MG PO DAILY, CAP Discontinued Medications: Fexofenadine Hcl (Dinora Allergy) 180 Mg Tab 1 TAB PO DAILY for 30 Days, #30 TAB 2 Refills Hctz/Losartan (Hyzaar 25MG/100MG) Tab 1 TAB PO DAILY, #90 TAB Mirtazapine (Remeron) 15 Mg Tab 1 TAB PO HS for 30 Days, #30 TAB 1 Refill Admission Information HPI (per Admitting provider): 72 years old male with past medical history of hypertension, hypothyroidism, obesity, advanced dementia, vitamin D deficiency, venous insufficiency present to the ER with urinary incontinence and fever. History obtained from the due to advanced dementia. As per for the past 3 nights, patient has been found in his bed soaked in his urine which is unusual for him. said his mental status as been deteriorated in the past few days and patient has been feeling more sleepy and tired. He has been moving very slowly and his gait his unsteady. Yesterday afternoon he spiked a fever with temp 101.8. said last night patient fell, but he was able to catch himself on the bed. He has been more confused than usual. Also he has been coughing with productive yellowish sputum. He was recently started on Remeron about a week ago. While in the ER his heart rate increased above 100 from 60. EKG done in the ER showed Afib. As per patient has no history of A. fib. Also complaint of RUQ tenderness that resolved. Denies any chest pain, palpitation, dizziness, shortness of breath, diarrhea, nausea and vomiting. Physical Exam (per Admitting): General Appearance: no apparent distress, + obese Head: normocephalic, atraumatic Eyes: PERRL, EOMI ENT: hearing grossly normal Neck: no JVD, trachea midline Respiratory/Chest: chest non-tender, no respiratory distress, no accessory muscle use Cardiovascular: no JVD, no murmur, + irregularly irregular Abdomen/GI: normal bowel sounds, non tender Back: no CVA tenderness Extremities/Musculoskelatal: no calf tenderness, + swelling Neurologic/Psych: alert, normal mood/affect Skin: warm/dry, no rash Hospital Course This is a 72 year old male with a past medical history of mixed vascular/fronto- temporal dementia, depression/anxiety, asthma, HTN, hypothyroidism, obesity - presented with worsening confusion, ambulatory dysfunction, productive cough Community Acquired Pneumonia - CXR - Bibasilar opacities, right greater than left - Ceftriaxone and Azithromycin for pneumonia, continue - blood culture from 08/10/17 no growth to date - WBC 14,900 to 11,000 - sputum culture was ordered but no samples provided -CXR on 08/12/17 1. Hypoinflation with subsegmental bibasilar and right perihilar opacities favoring atelectasis with pneumonia thought to be less likely. 2. Cardiomegaly without overt pulmonary edema. -Stop Ceftriaxone and continue as prescription as augmentin. Continue azithromycin as outpatient prescription Persistent atrial fibrillation - on IV heparin while in the hospital, but as per cardiology and patient's family it is consensus that patient is fall risk and would not be bridged to oral blood thinners for hospital discharge -IV heparin stopped on 08/13/17 -HCTZ/Losartan has been discontinued to allow for metoprolol tartrate 12.5 mg BID HTN -HCTZ/Losartan has been discontinued to allow for metoprolol tartrate 12.5 mg BID Hypokalemia -serum potassium 3.3 and patient given oral potassium 80 meq on discharge day while on the hospital Mixed vascular/fronto-temporal dementia Depression/Anxiety - follows with geriatric psych - was recently started on Remeron, which was held in the hospital. Can be stopped on discharge. - continue Effexor Hypothyroidism - TSH within normal limits - continue Synthroid Asthma/Allergies - continue Singulair - PT/OT evaluated the patient Discharge Instructions to home with home health services. Continue completion of pneumonia oral antibiotics. Continue medications for heart rate control Follow up with primary care doctor on 08/19/2017 [facility] Brijesh Darnell MD for follow up whether need additional heart rate control medications and for follow up resolution of pneumonia Total time spent on discharge = 40 minutes This includes examination of the patient, discharge planning, medication reconciliation, and communication with other providers. Discharge Instructions see above
[2017-08-13 17:04] VITALS: BP 137/78; PULSE 106; TEMP 37.2; O2SAT 96
== END 2017-08-13 19:00 | disposition home health service (06) | DRG 194 ==
LOC: C.EDB 23:15 → C.MSICU 08-10 02:41 → ENRESERV 08-10 03:10 → C.2T 08-10 12:50
PROVIDERS: ADMIT Internal Medicine; ATTEND Hospitalist
DX: J18.9 Pneumonia, unspecified organism (principal); N39.0 Urinary tract infection, site not specified; I48.1 Persistent atrial fibrillation; I10 Essential (primary) hypertension; F02.80 Dementia in other diseases classified elsewhere, unspecified severity, without behavioral disturbance, psychotic disturbance, mood disturbance, and anxiety; G31.09 Other frontotemporal neurocognitive disorder; F01.50 Vascular dementia, unspecified severity, without behavioral disturbance, psychotic disturbance, mood disturbance, and anxiety; E87.6 Hypokalemia; E78.5 Hyperlipidemia, unspecified; F03.90 Unspecified dementia, unspecified severity, without behavioral disturbance, psychotic disturbance, mood disturbance, and anxiety; Z79.82 Long term (current) use of aspirin; Z79.4 Long term (current) use of insulin